=== PATIENT | male | born 1980 | race Caucasian/White ===

== ENCOUNTER 2018-05-16 22:37 | Observation (INO) ==
[2018-05-17] MEDS ORDERED: Morphine Sulfate Inj 2 MG/ML Vial IV.PUSH ONE ×2 (03:17→06:18)
--- NOTE | 2018-05-17 03:20 | ED ---
HPI General Chief Complaint: Abdominal Pain Stated Complaint: Abd pain Time Seen by Provider: 05/17/18 03:11 History of Present Illness HPI narrative: Patient presents to the ER complaining of epigastric abdominal pain 2 days. States he feels like it is gas. Radiates to his mid back, 8 out of 10, constant, aggravated by eating, alleviated by movement. Denies fever chills, chest pain or shortness of breath. He states he has been nauseated and vomiting with nonbloody diarrhea. Related Data Allergies Allergy/AdvReac Type Severity Reaction Status Date / Time No Known Allergies Allergy Verified 05/16/18 23:09 Review of Systems ROS: all other systems reviewed are negative FORMERLY [facility], [facility]–1983 Medical History Medical History Colitis (Acute) Diabetes (Acute) HTN (hypertension) (Acute) Sleep apnea (Acute) Surgical History Surgical History Tracheostomy status (Acute) Social History Social History Substance History: No History of Abuse Smoking Status: Never smoker How Often Do You Have a Drink Containing Alcohol: Monthly or less Recent Travel in [facility] within the Last 8 Weeks: No Recent Out of Country Travel within the Last 8 Weeks: No Immunization History Tetanus Immunization: <5 Years Hx Influenza Vaccine This Season: Yes Exam Narrative Exam Narrative: GENERAL: No acute distress. SKIN: Focused skin assessment warm/dry. HEAD: Atraumatic. Normocephalic. EYES: Pupils equal and round. No scleral icterus. No injection or drainage. ENT: No nasal bleeding or discharge. Mucous membranes pink and moist. NECK: Trachea midline. No JVD. CARDIOVASCULAR: Regular rate and rhythm. No murmur appreciated. RESPIRATORY: No accessory muscle use. Clear to auscultation. Breath sounds equal bilaterally. GASTROINTESTINAL: Abdomen soft, diffusely tender, obese. Hepatic and splenic margins not palpable. MUSCULOSKELETAL: No obvious deformities. No clubbing. No cyanosis. No edema. NEUROLOGICAL: Awake and alert. No obvious cranial nerve deficits. Motor grossly within normal limits. Normal speech. PSYCHIATRIC: Appropriate mood and affect; insight and judgment normal. Course Initial Documented Vital Signs Temperature 98.2 F 05/16/18 23:09 Pulse Rate 62 05/16/18 23:09 Respiratory Rate 18 05/16/18 23:09 Blood Pressure 136/89 05/16/18 23:09 Pulse Oximetry 99 05/16/18 23:09 Last Documented Vital Signs Temperature 98.2 F 05/16/18 23:09 Pulse Rate 75 08/19/18 03:14 Respiratory Rate 20 05/17/18 04:08 Blood Pressure 133/76 05/17/18 03:14 Pulse Oximetry 99 05/17/18 03:14 Medical Decision Making MDM Narrative Medical decision making narrative: Presents to the emergency department complaining of epigastric abdominal pain, diarrhea, and nausea vomiting. Patient placed on monitor worker, continuous pulse ox, and IV access obtained. Labs, EKG, chest x-ray, CT abdomen pelvis, 2 mg IV morphine and 4 mg IV Zofran ordered. Chest x-ray shows no acute process. T bili and glucose and AST and ALT increased. UA positive for protein and bilirubin. CT abd/pelvis: CONCLUSION:1. No acute abnormality is seen.2. Hepatic steatosis U/S: 1. Hepatic steatosis.2. Gallbladder sludge. 0615: Spoke to Dr. Ferguson, the radiologist, who advised that gallbladder sludge is not indicative of anything pathologic. patient still c/o abd pain. Will give another dose of morphine, 1L IV NS, and admit for observation. Medical Screen Exam Complete: Yes Emergency Medical Condition: Yes Differential Diagnosis Differential Diagnosis: ACS, pancreatitis, peptic ulcer disease/GERD/, cholecystitis, cholelithiasis Lab Data Result diagrams: 05/17/18 03:30 05/17/18 03:30 Lab Results 05/17/18 05/17/18 05/17/18 Range/Units 03:30 03:30 03:30 WBC 7.9 (4.0-11.0) th/mm3 RBC 4.78 (4.50-5.90) mil/mm3 Hgb 14.4 (13.0-17.0) gm/dL Hct 41.5 (39.0-51.0) % MCV 86.8 (80.0-100.0) fL MCH 30.2 (27.0-34.0) pg MCHC 34.8 (32.0-36.0) % RDW 13.4 (11.6-17.2) % Plt Count 235 (150-450) th/mm3 MPV 8.9 (7.0-11.0) fL Neut % (Auto) 76.8 H (16.0-70.0) % Lymph % (Auto) 14.3 (9.0-44.0) % [place] % (Auto) 7.0 (0.0-8.0) % Eos % (Auto) 1.6 (0.0-4.0) % Baso % (Auto) 0.3 (0.0-2.0) % Neut # (Auto) 6.1 (1.8-7.7) th/mm3 Lymph # (Auto) 1.1 (1.0-4.8) th/mm3 [place] # (Auto) 0.6 (0.0-0.9) th/mm3 Eos # (Auto) 0.1 (0.0-0.4) th/mm3 Baso # (Auto) 0.0 (0.0-0.2) th/mm3 WBC Differential . Differential Comment Auto diff final PT 10.3 (9.8-11.6) sec INR 1.0 Ratio APTT 27.1 (24.3-30.1) sec Sodium 137 (136-145) meq/L Potassium 3.9 (3.5-5.1) meq/L Chloride 103 (98-107) meq/L Carbon Dioxide 28.4 (21.0-32.0) meq/L Anion Gap 6 (5-15) meq/L BUN 7 (7-18) mg/dL Creatinine 0.86 (0.60-1.30) mg/dL Estimated GFR Greater than 89 (>89) mL/min Random Glucose 206 H (74-106) mg/dL Calcium 8.2 L (8.5-10.1) mg/dL Total Bilirubin 4.9 H (0.2-1.0) mg/dL AST 489 H (15-37) U/L ALT 620 H (12-78) U/L Alkaline Phosphatase 90 (45-117) U/L Total Creatine Kinase 154 (39-308) U/L CK-MB (CK-2) 3.1 (0.5-3.6) ng/mL Troponin I Less than 0.02 L (0.02-0.05) ng/mL Total Protein 7.6 (6.4-8.2) g/dL Albumin 3.8 (3.4-5.0) g/dL Lipase 111 (73-393) U/L Urine Color (Yellw/Straw) Urine Clarity (Clear) Urine pH (5.0-8.5) Ur Specific [place] (1.002-1.035) Urine Protein (Neg-Trace) mg/dL Urine Glucose (UA) (Negative) mg/dL Urine Ketones (Negative) mg/dL Urine Occult Blood (Negative) Urine Nitrate (Negative) Urine Bilirubin (Negative) Urine Ictotest (Negative) Urine Urobilinogen (Less than 2) mg/dL Ur Leukocyte Esterase (Negative) Urine RBC (0-3) /hpf Urine WBC (0-5) /hpf Ur Squamous Epith Cells (0-5) /hpf Hyaline Casts (0-3) /lpf Urine Mucus (Occasional) /lpf Micro UA Comment Urine Culture Comments 05/17/18 Range/Units 03:58 WBC (4.0-11.0) th/mm3 RBC (4.50-5.90) mil/mm3 Hgb (13.0-17.0) gm/dL Hct (39.0-51.0) % MCV (80.0-100.0) fL MCH (27.0-34.0) pg MCHC (32.0-36.0) % RDW (11.6-17.2) % Plt Count (150-450) th/mm3 MPV (7.0-11.0) fL Neut % (Auto) (16.0-70.0) % Lymph % (Auto) (9.0-44.0) % [place] % (Auto) (0.0-8.0) % Eos % (Auto) (0.0-4.0) % Baso % (Auto) (0.0-2.0) % Neut # (Auto) (1.8-7.7) th/mm3 Lymph # (Auto) (1.0-4.8) th/mm3 [place] # (Auto) (0.0-0.9) th/mm3 Eos # (Auto) (0.0-0.4) th/mm3 Baso # (Auto) (0.0-0.2) th/mm3 WBC Differential Differential Comment PT (9.8-11.6) sec INR Ratio APTT (24.3-30.1) sec Sodium (136-145) meq/L Potassium (3.5-5.1) meq/L Chloride (98-107) meq/L Carbon Dioxide (21.0-32.0) meq/L Anion Gap (5-15) meq/L BUN (7-18) mg/dL Creatinine (0.60-1.30) mg/dL Estimated GFR (>89) mL/min Random Glucose (74-106) mg/dL Calcium (8.5-10.1) mg/dL Total Bilirubin (0.2-1.0) mg/dL AST (15-37) U/L ALT (12-78) U/L Alkaline Phosphatase (45-117) U/L Total Creatine Kinase (39-308) U/L CK-MB (CK-2) (0.5-3.6) ng/mL Troponin I (0.02-0.05) ng/mL Total Protein (6.4-8.2) g/dL Albumin (3.4-5.0) g/dL Lipase (73-393) U/L Urine Color Zahra (Yellw/Straw) Urine Clarity Hazy H (Clear) Urine pH 5.0 (5.0-8.5) Ur Specific [place] 1.035 (1.002-1.035) Urine Protein 30 H (Neg-Trace) mg/dL Urine Glucose (UA) 500 or greater (Negative) mg/dL Urine Ketones Negative (Negative) mg/dL Urine Occult Blood Negative (Negative) Urine Nitrate Negative (Negative) Urine Bilirubin Moderate H (Negative) Urine Ictotest Positive H (Negative) Urine Urobilinogen 4 or greater (Less than 2) mg/dL Ur Leukocyte Esterase Negative (Negative) Urine RBC 1 (0-3) /hpf Urine WBC 2 (0-5) /hpf Ur Squamous Epith Cells 3 (0-5) /hpf Hyaline Casts 1 (0-3) /lpf Urine Mucus Few H (Occasional) /lpf Micro UA Comment Culture not ind Urine Culture Comments Culture not ind Imaging Data Radiologist's impression: Chest X-Ray 05/17/18 03:17 CONCLUSION: No acute cardiopulmonary process. Abdomen/Pelvis CT 05/17/18 04:27 CONCLUSION: 1. No acute abnormality is seen. 2. Hepatic steatosis. Gallbladder Ultrasound 05/17/18 05:17 CONCLUSION: 1. Hepatic steatosis. 2. Gallbladder sludge. ECG Data Attestation: I personally reviewed and interpreted this ECG as follows: Discharge Plan Discharge Disposition Patient Disposition: 30 Still Patient Discharge Condition Condition: Stable Discharge Details Diagnosis: Abdominal pain Physicians Team ED Provider: Ana Hopper Primary Care Provider: UNKNOWN, Discharge Interventions Interventions: Vital Signs Last Done: 05/17/18 03:14 Status ED Status: With Doctor
[2018-05-17 03:46] LABS: Baso % (Auto) 0.3 % (0.0-2.0); Eos # (Auto) 0.1 th/mm3 (0.0-0.4); Eos % (Auto) 1.6 % (0.0-4.0); Hematocrit 41.5 % (39.0-51.0); Hemoglobin 14.4 gm/dL (13.0-17.0); Lymph # (Auto) 1.1 th/mm3 (1.0-4.8); Lymph % (Auto) 14.3 % (9.0-44.0); Mean Corpuscular HGB Conc 34.8 % (32.0-36.0); Mean Corpuscular Hemoglobin 30.2 pg (27.0-34.0); Mean Corpuscular Volume 86.8 fL (80.0-100.0); Mean Platelet Volume 8.9 fL (7.0-11.0); Mono # (Auto) 0.6 th/mm3 (0.0-0.9); Neut # (Auto) 6.1 th/mm3 (1.8-7.7); Neut % (Auto) 76.8 % (16.0-70.0); Platelet Count 235 th/mm3 (150-450); Red Blood Count 4.78 mil/mm3 (4.50-5.90); Red Cell Distribution Width 13.4 % (11.6-17.2); White Blood Count 7.9 th/mm3 (4.0-11.0)
[2018-05-17 03:59] LABS: Alanine Aminotransferase 620 U/L (12-78); Albumin 3.8 g/dL (3.4-5.0); Anion Gap 6 meq/L (5-15); Aspartate Aminotransferase 489 U/L (15-37); Blood Urea Nitrogen 7 mg/dL (7-18); Calcium 8.2 mg/dL (8.5-10.1); Carbon Dioxide 28.4 meq/L (21.0-32.0); Chloride 103 meq/L (98-107); Glomerular Filtration Rate Greater Than 89 mL/min (>89); Glucose,Random 206 mg/dL (74-106); Lipase 111 U/L (73-393); Potassium 3.9 meq/L (3.5-5.1); Sodium 137 meq/L (136-145)
[2018-05-17 04:00] LABS: Activated Partial Thrombo Time 27.1 sec (24.3-30.1); Prothrombin Time 10.3 sec (9.8-11.6)
[2018-05-17 04:03] LABS: Alkaline Phosphatase 90 U/L (45-117); Creatine Kinase 154 U/L (39-308); Total Protein 7.6 g/dL (6.4-8.2)
[2018-05-17 04:14] LABS: Bilirubin,Urine Moderate (Negative); Clarity,Urine Hazy (Clear); Color,Urine Amber (Yellw/Straw); Glucose,Urine (UA) 500 or Greater mg/dL (Negative); Hyaline Casts,Urine 1 /lpf (0-3); Leukocyte Esterase,Urine Negative (Negative); Mucus,Urine Few /lpf (Occasional); Nitrite,Urine Negative (Negative); Specific Gravity,Urine 1.035 (1.002-1.035); Squamous Epithelial Cell,Urine 3 /hpf (0-5); Urobilinogen,Urine 4 or Greater mg/dL (Less than 2)
[2018-05-17 04:16] LABS: Creatine Kinase MB 3.1 ng/mL (0.5-3.6)
[2018-05-17 04:19] LABS: Ictotest,Urine Positive (Negative)
--- NOTE | 2018-05-17 04:19 | XR ---
EXAM DATE: 05/17/2018 3:50 AM EDT AGE/SEX: 37 years / Male INDICATIONS: Lower chest pain for one week. CLINICAL DATA: This is the patient's initial encounter. Patient reports that signs and symptoms have been present for 1 week and indicates a pain score of 6/10. MEDICAL/SURGICAL HISTORY: None. None. COMPARISON: No prior exams available for comparison. FINDINGS: A single AP view of the chest demonstrates the lungs to be symmetrically aerated without evidence of mass, infiltrate or effusion. The cardiomediastinal contours are unremarkable. Osseous structures a re intact. CONCLUSION: No acute cardiopulmonary process. Electronically signed by: Hayder Ferguson MD 05/17/2018 4:17 AM EDT
--- NOTE | 2018-05-17 05:08 | CT ---
EXAM DATE: 05/17/2018 4:46 AM EDT AGE/SEX: 37 years / Male INDICATIONS: Upper abdominal pain X one week. CLINICAL DATA: This is the patient's initial encounter. Patient reports that signs and symptoms have been present for 1 week and indicates a pain score of 7/10. MEDICAL/SURGICAL HISTORY: Diabetes. Colitis None. ORAL CONTRAST: No oral contrast ingested. RADIATION DOSE: 31.80 CTDI (mGy) ; Patient body habitus COMPARISON: No prior exams available for comparison. TECHNIQUE: Multiple contiguous axial images were obtained through the abdomen and pelvis following b olus infusion of 96 ml Omnipaque 350 (iohexol) nonionic water-soluble contrast as a single exam dos e. No oral contrast ingested. Using automated exposure control and adjustment of the mA and/or kV ac cording to patient size, radiation dose was kept as low as reasonably achievable to obtain optimal di agnostic quality images. DICOM format image data is available electronically for review and comparis on. FINDINGS: Lower Lungs: The visualized lower lungs are clear. Liver: There is diffuse decreased attenuation to the liver. No focal hepatic lesions are seen. The ga llbladder is unremarkable for CT examination. Spleen: Homogeneous density without enlargement. Pancreas: Unremarkable without mass or calcification. Kidneys: Normal in size and shape. No evidence of mass or hydronephrosis. Adrenal Glands: Unremarkable. Aorta: The aorta and proximal iliac vessels are grossly unremarkable without aneurysmal dilation. Bowel/Mesentery: The bowel loops are grossly unremarkable. The cecum and sigmoid colon have a normal configuration. The appendix appears normal. Abdominal Wall: There is a mild umbilical hernia containing a small amount of mesenteric fat. Retroperitoneum: No evidence of adenopathy in the retrocrural, para-aortic, or deep pelvic regions. Bladder: Contours are smooth. Reproductive Organs: No abnormal masses or calcifications seen. Inguinal: The inguinal region is unremarkable without evidence of adenopathy. Bony Structures: There is degenerative change at the L5-S1 level. CONCLUSION: 1. No acute abnormality is seen. 2. Hepatic steatosis. Electronically signed by: Hayder Ferguson MD 05/17/2018 5:07 AM EDT
--- NOTE | 2018-05-17 06:03 | US ---
EXAM DATE: 05/17/2018 5:59 AM EDT AGE/SEX: 37 years / Male INDICATIONS: Epigastric pain. CLINICAL DATA: This is the patient's initial encounter. Patient reports that signs and symptoms have been present for 1 week and indicates a pain score of 7/10. MEDICAL/SURGICAL HISTORY: Diabetes. Hypertension. Colitis. None. COMPARISON: [facility] [place], CT ABDOMEN & PELVIS W CONTRAST, 05/17/2018. . MEASUREMENTS: Liver:__ 18.8 cm. Common Bile Duct:__ 7mm. FINDINGS: Liver: Increased echotexture without focal lesion or ductal dilation. Portal Vein: Hepatopedal flow seen in portal vein. Common Duct: No intraluminal mass or stone visualized. Gallbladder: There is echogenic material within the gallbladder suggestive of sludge. Gallstones are not seen. The gallbladder wall is not thickened. Pancreas: The visualized portions are within normal limits Right Kidney: Normal echotexture and cortical thickness. No mass or hydronephrosis. CONCLUSION: 1. Hepatic steatosis. 2. Gallbladder sludge. Electronically signed by: Hayder Ferguson MD 05/17/2018 6:01 AM EDT
[2018-05-17] MEDS ORDERED: Sod Chloride 0.9% Inj 1,000 ML IV.SIG ONE (06:18)
[2018-05-17] MEDS: Sod Chloride 0.9% Inj 1,000 ML IV.CONT SCH ×2 (06:39→17:57)
--- NOTE | 2018-05-17 10:43 | P.CONGI ---
History of Present Illness Consult date: 05/17/18 Consult reason: Abdominal pain, transaminitis Chief complaint: Abdominal pain History of Present Illness: This is an obese 37-year-old male who came into the hospital on 03/17/2018 complaining of epigastric pain, bloating and some nausea and vomiting, diarrhea. Patient states onset of symptoms was approximately a week ago but has worsened over the past few days. Aggravating symptoms are any type of food and after eating as well as belching and burping especially with foods. Patient states he had a EGD done at an office in [place] approximately 2 weeks ago which showed acid reflux but was not taken any medicines for his symptoms. He also notes colonoscopy approximately 2 years ago for what he thinks is ulcerative colitis and has been on Apriso. Patient states he still has some diarrheal stools anywhere from 2-3 times a day but no obvious bleeding. When initial labs were drawn here in the hospital bilirubin showed 4.9, AST 489 ALT 620 and normal alkaline phosphatase at 90. Patient states he has been started on some new medication for depression and does take cholesterol medicines. Gastroenterology was consulted to assist with these current GI symptoms and plan of care. Patient denies any current alcohol usage and states that he only drank monthly or less in the past. Patient denies any previous liver workup or liver problems in the past. CT of the abdomen and pelvis showed hepatic steatosis and mild umbilical hernia. Ultrasound of the gallbladder was also done which showed gallbladder sludge but no ductal dilation. Patient denies any family history of colon cancer. Other current labs show hemoglobin 14.4, PT/INR 1, WBC count 7.9,. Patient denies any other symptoms of fever chills or history of constipation, but does note a history of diabetes. Patient has positive Hx tattoo. Review of Systems All other systems reviewed negative except as stated in HPI PMFSH - History History Provided By: Patient - Medical History Medical History: Medical History (Last Updated 05/16/18 @ 23:11 by Clemencia Milton) Colitis Diabetes HTN (hypertension) Sleep apnea - Surgical History Surgical History: Surgical History (Last Updated 05/16/18 @ 23:11 by Clemencia Milton) Tracheostomy status - Tobacco History Smoking Status: Never smoker - Alcohol History How Often Do You Have a Drink Containing Alcohol: Monthly or less - Substance Use History Substance History: No History of Abuse - Travel History Recent Travel in the [place] Within the Last 8 Weeks: No Recent Travel Out of the Country Within the Last 8 Weeks: No - Immunization History Tetanus Immunization: <5 Years Hx Influenza Vaccine This Season: Yes Medications and Allergies Active Medications: Active Medications Sodium Chloride (Ns Inj) 1,000 mls @ 100 mls/hr IV.CONT .Q10H SERGE Last Admin: 05/17/18 06:39 Dose: 100 mls/hr Ondansetron HCl (Zofran Inj) 4 mg IV.PUSH Q6H PRN PRN Reason: NAUSEA OR VOMITING Allergies Allergy/AdvReac Type Severity Reaction Status Date / Time No Known Allergies Allergy Verified 05/16/18 23:09 Home Medications Medication Instructions Recorded Confirmed Type lisinopril 10 mg PO DAILY 05/17/18 05/17/18 History mesalamine [Apriso] 4 tab PO QAM 05/17/18 05/17/18 History metformin 500 mg PO BID 05/17/18 05/17/18 History Exam Vital signs: Vital Signs 05/16/18 23:09 05/17/18 03:14 05/17/18 04:08 Temperature 98.2 F Pulse Rate 62 75 Respiratory Rate 18 18 20 Blood Pressure 136/89 133/76 Pulse Oximetry 99 99 05/17/18 06:33 05/17/18 08:10 Temperature Pulse Rate 66 62 Respiratory Rate 20 18 Blood Pressure 132/70 134/82 Pulse Oximetry 98 Intake & Output 05/16/18 05/17/18 05/17/18 18:59 06:59 18:59 Weight 143.789 kg - Constitutional mild distress, morbidly obese - Routine HEENT Exam Head: Present: normocephalic, atraumatic ENT: Present: mucous membranes moist - Routine Neck Exam Present: supple (Obese) - Routine Respiratory Exam Present: accessory muscle use (Even, unlabored at rest) - Routine Abdominal Exam Present: soft (Round, obese, epigastric tenderness to light palpation) - Routine Neurological Exam Present: alert (Fairly good historian) Results - Labs CBC & Chem 7: 05/17/18 03:30 05/17/18 03:30 Labs: Laboratory Results - last 24 hr 05/17/18 05/17/18 05/17/18 03:30 03:30 03:30 WBC 7.9 RBC 4.78 Hgb 14.4 Hct 41.5 MCV 86.8 MCH 30.2 MCHC 34.8 RDW 13.4 Plt Count 235 MPV 8.9 Neut % (Auto) 76.8 H Lymph % (Auto) 14.3 [place] % (Auto) 7.0 Eos % (Auto) 1.6 Baso % (Auto) 0.3 Neut # (Auto) 6.1 Lymph # (Auto) 1.1 [place] # (Auto) 0.6 Eos # (Auto) 0.1 Baso # (Auto) 0.0 WBC Differential . Differential Comment Auto diff final PT 10.3 INR 1.0 APTT 27.1 Sodium 137 Potassium 3.9 Chloride 103 Carbon Dioxide 28.4 Anion Gap 6 BUN 7 Creatinine 0.86 Estimated GFR Greater than 89 Random Glucose 206 H Calcium 8.2 L Total Bilirubin 4.9 H AST 489 H ALT 620 H Alkaline Phosphatase 90 Total Creatine Kinase 154 CK-MB (CK-2) 3.1 Troponin I Less than 0.02 L Total Protein 7.6 Albumin 3.8 Lipase 111 Urine Color Urine Clarity Urine pH Ur Specific [place] Urine Protein Urine Glucose (UA) Urine Ketones Urine Occult Blood Urine Nitrate Urine Bilirubin Urine Ictotest Urine Urobilinogen Ur Leukocyte Esterase Urine RBC Urine WBC Ur Squamous Epith Cells Hyaline Casts Urine Mucus Micro UA Comment Urine Culture Comments 05/17/18 03:58 WBC RBC Hgb Hct MCV MCH MCHC RDW Plt Count MPV Neut % (Auto) Lymph % (Auto) [place] % (Auto) Eos % (Auto) Baso % (Auto) Neut # (Auto) Lymph # (Auto) [place] # (Auto) Eos # (Auto) Baso # (Auto) WBC Differential Differential Comment PT INR APTT Sodium Potassium Chloride Carbon Dioxide Anion Gap BUN Creatinine Estimated GFR Random Glucose Calcium Total Bilirubin AST ALT Alkaline Phosphatase Total Creatine Kinase CK-MB (CK-2) Troponin I Total Protein Albumin Lipase Urine Color Zahra Urine Clarity Hazy H Urine pH 5.0 Ur Specific [place] 1.035 Urine Protein 30 H Urine Glucose (UA) 500 or greater Urine Ketones Negative Urine Occult Blood Negative Urine Nitrate Negative Urine Bilirubin Moderate H Urine Ictotest Positive H Urine Urobilinogen 4 or greater Ur Leukocyte Esterase Negative Urine RBC 1 Urine WBC 2 Ur Squamous Epith Cells 3 Hyaline Casts 1 Urine Mucus Few H Micro UA Comment Culture not ind Urine Culture Comments Culture not ind - Imaging Impressions Chest X-Ray 05/17/18 03:17 CONCLUSION: No acute cardiopulmonary process. Abdomen/Pelvis CT 05/17/18 04:27 CONCLUSION: 1. No acute abnormality is seen. 2. Hepatic steatosis. Gallbladder Ultrasound 05/17/18 05:17 CONCLUSION: 1. Hepatic steatosis. 2. Gallbladder sludge. Assessment and Plan (1) Transaminitis Status: Acute Code(s): R74.0 - Nonspecific elevation of levels of transaminase and lactic acid dehydrogenase [LDH] (2) Abdominal pain Status: Acute Code(s): R10.9 - Unspecified abdominal pain (3) Dyspepsia Status: Acute Code(s): R10.13 - Epigastric pain (4) Epigastric pain Status: Acute Code(s): R10.13 - Epigastric pain - Plan 37-year-old obese male with symptoms of dyspepsia ,nausea and vomiting, some bloating and burping and aggregating factors with eating any type of food. Patient denies any obvious bleeding but does note history of EGD 2 weeks ago and a [place] office which showed atrophy reflux. Patient was not started on any medication at that time. Patient does have a history of diabetes but unknown if patient could possibly have be having symptoms of some gastroparesis. Current hemoglobin 14.4 ,WBC count 7.9 ,PT/INR 1, Diarrhea loose stools with a history of colitis probable ulcerative colitis according to patient. Patient's currently on Apriso and notes diarrhea stools 2 or 3 times a day nonbloody. Hepatic steatosis noted on CT of abdomen and pelvis. Transaminitis with AST 489 and ALT 620 normal alkaline phosphatase at 90 and bilirubin 4.9. This is a new finding for this patient so hepatocellular disease needs to be ruled out. Patient does note some new medications for depression and medications for cholesterol. Patient's hepatocellular disease could be related to medications, dietary, inflammation, doubt obstruction. CT scan did show hepatic steatosis and mild umbilical hernia. Gallbladder ultrasound sludge sludge but no ductal dilatation. No family history of colon cancer. Positive history of tattoos Plan Diet clear liquids for now or per attending. Consent for EGD colonoscopy in a.m. N.p.o. at midnight GoLYTELY prep to began at 1600 Liver workup labs initiated to rule out hepatocellular disease. PPI IV Zofran Monitor labs Supportive care Further recommendations to follow. Patient was seen per me and Dr. Moss, note was written on his behalf (2) Abdominal pain Qualifiers: Abdominal location: right upper quadrant Qualified Code(s): R10.11 - Right upper quadrant pain
[2018-05-17 12:06] LABS: Hepatitis A IgM Antibody Nonreactive (Nonreactive); Hepatitits B Surface Antigen Nonreactive (Nonreactive)
[2018-05-17 12:58] LABS: Alpha Fetoprotein Tumor Marker 1.9 ng/mL (0.5-8.0)
[2018-05-17] MEDS: Pantoprazole Inj 40 MG Vial IV.PUSH SCH ×2 (13:49→23:19)
--- NOTE | 2018-05-17 14:46 | P.HPIM ---
History of Present Illness Service: Mr. Dolan is a 37-year-old male. He says for several weeks he has been having intermittent right upper quadrant abdominal pain. This tends to occur at night and he is noticed that it may be positional for introducing the pain and alleviating the pain. Yesterday he had an onset of the pain but did not have relief for approximately 24 hours so he came in to the emergency department. No overt evidence is present for cholecystitis though clinically and based on history he would be suspicious for symptomatic cholelithiasis. When I am seeing this patient he has had resolution of his pain. HIDA scan is pending. Primary Care Physician: UNKNOWN - Diagnosis (1) Abdominal pain (2) Transaminitis (3) Dyspepsia (4) Epigastric pain Review of Systems Constitutional: Denies fatigue, Denies fever(s), Denies night sweats, Denies weakness Eyes: Denies blind spots, Denies blurry vision, Denies change in vision, Denies double vision Ears, Nose, Mouth, and Throat: Denies abnormal hearing, Denies bleeding gums, Denies nasal discharge Cardiovascular: Denies chest pain, Denies chest pain at rest, Denies chest pain with activity Respiratory: Denies cough, Denies shortness of breath, Denies wheezing Gastrointestinal: Reports abdominal pain Musculoskeletal: Denies abnormal walking, Denies back pain, Denies decreased muscle mass Skin/Breast: Denies rash, Denies skin pain, Denies skin ulcer Neurologic: Denies abnormal hearing, Denies abnormal movements, Denies abnormal speech Psychiatric: Denies abnormal sleep pattern, Denies anxiety, Denies behavioral changes PMFSH - History History Provided By: Patient - Medical History Medical History: Medical History (Last Updated 05/16/18 @ 23:11 by Clemencia Milton) Colitis Diabetes HTN (hypertension) Sleep apnea - Surgical History Surgical History: Surgical History (Last Updated 05/16/18 @ 23:11 by Clemencia Milton) Tracheostomy status - Family History Family History: Family History (Last Updated 05/17/18 @ 14:41 by Percy Yancey MD) Mother Asthma Father Diabetes FHx: cholecystectomy Hypertension - Tobacco History Smoking Status: Never smoker - Alcohol History How Often Do You Have a Drink Containing Alcohol: Monthly or less - Substance Use History Substance History: No History of Abuse - Travel History Recent Travel in the [place] Within the Last 8 Weeks: No Recent Travel Out of the Country Within the Last 8 Weeks: No - Immunization History Tetanus Immunization: <5 Years Hx Influenza Vaccine This Season: Yes Medications and Allergies Active Medications: Active Medications Sodium Chloride (Ns Inj) 1,000 mls @ 100 mls/hr IV.CONT .Q10H [facility] Last Admin: 05/17/18 06:39 Dose: 100 mls/hr Ondansetron HCl (Zofran Inj) 4 mg IV.PUSH Q6H PRN PRN Reason: NAUSEA OR VOMITING Pantoprazole Sodium (Protonix Inj) 40 mg IV.PUSH Q12H [facility] Last Admin: 05/17/18 13:49 Dose: 40 mg Polyethylene Glycol/Electrolytes (Colyte Liq) 4,000 ml PO ONCE ONE Stop: 05/17/18 16:01 Allergies Allergy/AdvReac Type Severity Reaction Status Date / Time No Known Allergies Allergy Verified 05/16/18 23:09 Home Medications Medication Instructions Recorded Confirmed Type lisinopril 10 mg PO DAILY 05/17/18 05/17/18 History mesalamine [Apriso] 4 tab PO QAM 05/17/18 05/17/18 History metformin 500 mg PO BID 05/17/18 05/17/18 History Exam Vital signs: Vital Signs 05/16/18 23:09 05/17/18 03:14 05/17/18 04:08 Temperature 98.2 F Pulse Rate 62 75 Respiratory Rate 18 18 20 Blood Pressure 136/89 133/76 Pulse Oximetry 99 99 05/17/18 06:33 05/17/18 08:10 Temperature Pulse Rate 66 62 Respiratory Rate 20 18 Blood Pressure 132/70 134/82 Pulse Oximetry 98 Intake & Output 05/16/18 05/17/18 05/17/18 18:59 06:59 18:59 Weight 143.789 kg Narrative: GENERAL: NAD, A&Ox3, obese HEAD: Normocephalic. NECK: Supple, trachea midline. No lymphadenopathy. EYES: No scleral icterus. No injection or drainage. CARDIOVASCULAR: Regular rate and rhythm without murmurs, gallops, or rubs. RESPIRATORY: Breath sounds equal bilaterally. No accessory muscle use. GASTROINTESTINAL: Abdomen soft, non-tender, nondistended. MUSCULOSKELETAL: No cyanosis, or edema. SKIN: Warm and dry. NEURO: No focal neurological deficits. Results - Labs CBC & Chem 7: 05/17/18 03:30 05/17/18 03:30 Labs: Short CBC 05/17/18 Range/Units 03:30 WBC 7.9 (4.0-11.0) th/mm3 Hgb 14.4 (13.0-17.0) gm/dL Hct 41.5 (39.0-51.0) % Plt Count 235 (150-450) th/mm3 BMP 05/17/18 03:30 Sodium 137 Potassium 3.9 Chloride 103 Carbon Dioxide 28.4 BUN 7 Creatinine 0.86 Calcium 8.2 L Cardiac Enzymes 05/17/18 Range/Units 03:30 Total Creatine Kinase 154 (39-308) U/L CK-MB (CK-2) 3.1 (0.5-3.6) ng/mL Troponin I Less than 0.02 L (0.02-0.05) ng/mL Liver Function 05/17/18 Range/Units 03:30 Total Bilirubin 4.9 H (0.2-1.0) mg/dL AST 489 H (15-37) U/L ALT 620 H (12-78) U/L Alkaline Phosphatase 90 (45-117) U/L Albumin 3.8 (3.4-5.0) g/dL Urine 05/17/18 Range/Units 03:58 Urine Color Zahra (Yellw/Straw) Urine Clarity Hazy H (Clear) Urine pH 5.0 (5.0-8.5) Ur Specific [place] 1.035 (1.002-1.035) Urine Protein 30 H (Neg-Trace) mg/dL Urine Glucose (UA) 500 or greater (Negative) mg/dL - Imaging Impressions Chest X-Ray 05/17/18 03:17 CONCLUSION: No acute cardiopulmonary process. Abdomen/Pelvis CT 05/17/18 04:27 CONCLUSION: 1. No acute abnormality is seen. 2. Hepatic steatosis. Gallbladder Ultrasound 05/17/18 05:17 CONCLUSION: 1. Hepatic steatosis. 2. Gallbladder sludge. Caprini VTE Risk Assessment Caprini VTE Risk Assessment: No/Low Risk (score <= 1) Caprini Risk Assessment Model: Point Value = 1 Point Value = 2 Point Value = 3 Point Value = 5 Age 41-60 Minor surgery BMI > 25 kg/m2 Swollen legs Varicose veins or History of unexplained or recurrent spontaneous Oral contraceptives or hormone replacement Sepsis (< 1 month) Serious lung disease, including pneumonia (< 1 month) Abnormal pulmonary function Acute myocardial infarction Congestive heart failure (< 1 month) History of inflammatory bowel disease Medical patient at bed rest Age 61-74 Arthroscopic surgery Major open surgery (> 45 min) Laparoscopic surgery (> 45 min) Malignancy Confined to bed (> 72 hours) Immobilizing plaster cast Central venous access Age >= 75 History of VTE Family history of VTE Factor V Leiden Prothrombin [id number] Lupus anticoagulant Anticardiolipin antibodies Elevated serum homocysteine Heparin-induced thrombocytopenia Other congenital or acquired thrombophilia Stroke (< 1 month) Elective arthroplasty Hip, pelvis, or leg fracture Acute spinal cord injury (< 1 month) Prophylaxis Regimen: Total Risk Factor Score Risk Level Prophylaxis Regimen 0-1 Low Early ambulation 2 Moderate Order ONE of the following: *Sequential Compression Device (SCD) *Heparin 5000 units SQ BID 3-4 Higher Order ONE of the following medications: *Heparin 5000 units SQ TID *Enoxaparin/Lovenox 40 mg SQ daily (WT < 150 kg, CrCl > 30 mL/min) *Enoxaparin/Lovenox 30 mg SQ daily (WT < 150 kg, CrCl > 10-29 mL/min) *Enoxaparin/Lovenox 30 mg SQ BID (WT < 150 kg, CrCl > 30 mL/min) AND/OR *Sequential Compression Device (SCD) 5 or more Highest Order ONE of the following medications: *Heparin 5000 units SQ TID (Preferred with Epidurals) *Enoxaparin/Lovenox 40 mg SQ daily (WT < 150 kg, CrCl > 30 mL/min) *Enoxaparin/Lovenox 30 mg SQ daily (WT < 150 kg, CrCl > 10-29 mL/min) *Enoxaparin/Lovenox 30 mg SQ BID (WT < 150 kg, CrCl > 30 mL/min) AND *Sequential Compression Device (SCD) Assessment and Plan - Assessment (1) Abdominal pain Code(s): R10.9 - Unspecified abdominal pain Status: Acute (2) Transaminitis Code(s): R74.0 - Nonspecific elevation of levels of transaminase and lactic acid dehydrogenase [LDH] Status: Acute (3) Dyspepsia Code(s): R10.13 - Epigastric pain Status: Acute (4) Epigastric pain Code(s): R10.13 - Epigastric pain Status: Acute - Plan 37-year-old male admitted secondary to abdominal pain with transaminitis Abdominal pain Transaminitis Hyperbilirubinemia Follow LFTs Follow bilirubin level Concern remains for biliary obstruction HIDA scan ordered for further evaluation Continue to monitor for pain Pain treatments as needed Ultrasound and CT showed no acute pathology Diet advance per GI recommendation Diabetes mellitus type 2 Follow blood sugars Insulin sliding scale Diabetic diet Hypertension Continue baseline treatment Follow blood pressures Adjust treatments as needed Chronic colitis Continue baseline treatments Primary symptom from this condition is not abdominal pain, but diarrhea No active diarrhea Sleep apnea CPAP DVT prophylaxis SCDs (1) Abdominal pain Qualifiers: Abdominal location: right upper quadrant Qualified Code(s): R10.11 - Right upper quadrant pain
--- NOTE | 2018-05-17 15:44 | ECG ---
Date Performed: 05/17/2018 Time Performed: 04:09:50 PTAGE: 37 years EKG: SINUS BRADYCARDIA WITH SINUS ARRHYTHMIA BORDERLINE ECG Since PREVIOUS TRACING , no significant change noted PREVIOUS TRACIN05/08/2011 08.25 DOCTOR: Elliott Dooley Interpretating Date/Time 05/17/2018 15:43:22
[2018-05-17] MEDS ORDERED: PEG 3350/E-Lyte Soln 4000 ML Bottle PO ONE (16:00)
[2018-05-17] MEDS ORDERED: Morphine Inj 4 MG/ML Vial IV.PUSH ONE (22:17)
[2018-05-17] MEDS ORDERED: Sodium Chlor 0.9% Inj 500 ML IV.SIG SCH (23:00)
[2018-05-17] MEDS ORDERED: Chlorhexidine Gluconate 2% 1 Pack (2 Cloths) TOPICAL SCH (23:00)
[2018-05-17] MEDS ORDERED: Metoprolol Tartrate 25 MG Tablet PO SCH (23:00)
[2018-05-18] MEDS: Sod Chloride 0.9% Inj 1,000 ML IV.CONT SCH ×3 (06:17→22:53)
[2018-05-18 07:55] LABS: Baso % (Auto) 0.5 % (0.0-2.0); Eos # (Auto) 0.2 th/mm3 (0.0-0.4); Eos % (Auto) 3.3 % (0.0-4.0); Hematocrit 39.4 % (39.0-51.0); Hemoglobin 13.8 gm/dL (13.0-17.0); Lymph # (Auto) 1.3 th/mm3 (1.0-4.8); Lymph % (Auto) 18.4 % (9.0-44.0); Mean Corpuscular Hemoglobin 30.7 pg (27.0-34.0); Mean Corpuscular Volume 87.5 fL (80.0-100.0); Mean Platelet Volume 9.2 fL (7.0-11.0); Mono # (Auto) 0.5 th/mm3 (0.0-0.9); Mono % (Auto) 7.2 % (0.0-8.0); Neut # (Auto) 4.9 th/mm3 (1.8-7.7); Neut % (Auto) 70.6 % (16.0-70.0); Platelet Count 210 th/mm3 (150-450); Red Cell Distribution Width 13.8 % (11.6-17.2); White Blood Count 6.9 th/mm3 (4.0-11.0)
[2018-05-18 08:27] LABS: Alanine Aminotransferase 445 U/L (12-78); Albumin 3.3 g/dL (3.4-5.0); Anion Gap 4 meq/L (5-15); Aspartate Aminotransferase 132 U/L (15-37); Blood Urea Nitrogen 4 mg/dL (7-18); Calcium 8.6 mg/dL (8.5-10.1); Carbon Dioxide 30.8 meq/L (21.0-32.0); Chloride 105 meq/L (98-107); Glomerular Filtration Rate Greater Than 89 mL/min (>89); Glucose,Random 128 mg/dL (74-106); Potassium 3.8 meq/L (3.5-5.1); Sodium 140 meq/L (136-145)
[2018-05-18 08:28] LABS: Alkaline Phosphatase 86 U/L (45-117); Total Protein 6.7 g/dL (6.4-8.2)
[2018-05-18] MEDS ORDERED: Sincalide Inj 5 MCG Vial IV.PUSH ONE (10:29)
--- NOTE | 2018-05-18 11:44 | NM ---
EXAM DATE: 05/18/2018 11:09 AM EDT AGE/SEX: 37 years / Male INDICATIONS: Abdominal pain. Obstruction. CLINICAL DATA: This is the patient's initial encounter. Patient reports that signs and symptoms have been present for 1 day and indicates a pain score of 4/10. MEDICAL/SURGICAL HISTORY: Diabetes mellitus type II. Hypertension. None. COMPARISON: [facility] [place], [place] ABDOMEN - GALLBLADDER, 05/17/2018. . DOSE: 4.2 mCi Tc-99m mebrofenin i.v. Medication: 2.5 mcg Cholecystokinin IV No symptomatic response Cholecystokinin was administered by slow infusion over 8 minutes beginning at 60 minutes. TECHNIQUE: Following the intravenous administration of radiotracer, dynamic sequential images were pe rformed with continuous acquisition. Time-activity curves were generated. FINDINGS: Hepatic Kinetics: There is prompt uptake of radiotracer in the liver. No focal defects are seen. Ther e is normal rate of washout from the hepatic parenchyma. Biliary Clearance: Activity is first seen in the extrahepatic biliary system at 15 minutes. There is normal excretion into the small bowel. Gallbladder: Activity is first seen in the gallbladder at 20 minutes. Post-CCK: After CCK administration, there is no emptying of the gallbladder with continued filling of the gallbladder. Common bile duct kinetics are normal and there is no evidence of biliary obstructio n. No symptomatic response after cholecystokinin infusion. Biliary-Enteric Reflux: None observed. CONCLUSION: 1. Visualization of the gallbladder confirms patency of the cystic duct. This makes diagnosis of acu te cholecystitis highly unlikely. 2. Normal biliary bowel transit time confirming patency of the common bile duct. 3. Slow gallbladder filling without significant gallbladder emptying following CCK administration. N o significant symptomatic response to CCK. Electronically signed by: Anshul Olivo MD 05/18/2018 11:42 AM EDT
[2018-05-18] MEDS ORDERED: Lidocaine PF 1% Inj 5 ML Syringe INFILTRATN ONE (12:00)
--- NOTE | 2018-05-18 12:05 | P.PCN ---
Date of procedure: 05/18/18 Pre-op diagnosis: Nausea vomiting bloating Procedure: PROCEDURE PERFORMED EGD with biopsy followed by colonoscopy with biopsy INDICATION FOR PROCEDURE Nausea vomiting, diarrhea, history of colitis PROCEDURE: The procedure, risks and benefits were discussed with Patient/POA and informed consent was obtained. Anesthesia sedated Patient with Diprivan. Patient was placed in the left lateral decubitus position. EGD: The Pentax videoscope was introduced through the oropharynx and advanced to the second portion of the duodenum under direct visualization. Retroflexion was performed in the stomach. FINDINGS: The esophagus this appeared to be unremarkable and within normal limits Stomach there was some patchy erythema in the antrum but no ulcerations no erosions no blood or bleeding the rest of the stomach was unremarkable antral biopsies were taken for further evaluation The duodenum this was normal Colonoscopy: The Pentax videoscope was introduced through the rectum and advanced to cecum where the ileocecal valve and appendiceal orifice were identified. Retroflexion was performed in the rectum. Colonic prep was fair FINDINGS: Colonic withdrawal time greater than 6 minutes. As the scope was slowly withdrawn colonic mucosa was carefully inspected the colonic mucosa appeared to be unremarkable and within normal limits all the way through random biopsies were taken from the ascending transverse descending and rectum to further evaluate for colitis retroflexion was unremarkable and so his rectal examination ESTIMATED BLOOD LOSS: None SPECIMENS REMOVED: Antral and colonic biopsies COMPLICATIONS: None IMPRESSION: Mild gastritis Otherwise unremarkable endoscopy PLAN: Await biopsies Advance diet as tolerated Patient requires better diabetes control Continue with present management If symptoms persist may consider gastric emptying scan and prokinetic medications Patient follow-up with GI post discharge Not much to add at this point we will sign off Anesthesia: MAC Surgeon: Bj Montenegro Condition: stable Disposition: floor
[2018-05-18] MEDS: Pantoprazole Inj 40 MG Vial IV.PUSH SCH ×2 (12:42→22:52)
--- NOTE | 2018-05-18 16:09 | P.PNIM ---
Subjective Interval history: Patient had another episode of severe pain last night. GI has completed their workup and found gastritis but no other acute findings on scoping. Patient reports that he has been having daily and nightly biliary colic type symptoms sometimes lasting about 24 hours. He requests surgical evaluation. Physical Exam Vital signs: Vital Signs 05/17/18 18:00 05/17/18 20:00 05/18/18 00:00 Temperature 98.2 F 97.7 F Pulse Rate 60 59 L Respiratory Rate 16 20 Blood Pressure 157/91 H 161/94 H Pulse Oximetry 98 98 99 05/18/18 04:00 05/18/18 08:00 05/18/18 08:14 Temperature 98.2 F 97.8 F Pulse Rate 46 L 58 L Respiratory Rate 17 16 Blood Pressure 134/68 145/89 H Pulse Oximetry 98 96 98 05/18/18 11:58 Temperature 97.9 F Pulse Rate 63 Respiratory Rate 18 Blood Pressure 117/68 Pulse Oximetry 98 Intake & Output 05/17/18 05/18/18 05/18/18 18:59 06:59 18:59 Intake Total 2480 / 2480 1440 / 1440 300 / 300 Output Total 1000 / 1000 Balance 2480 / 2480 440 / 440 300 / 300 Intake: IV 2000 / 1999 NS Inj 1,000 ML @ 100 mls/hr IV 1000 / 1000 .CONT .Q10H [facility] Rx#:[id number] NS Inj 1,000 ML @ Wide Open IV. 1000 / 1000 SIG BOLUS ONE Rx#:[id number] Oral 480 / 480 1440 / 1440 Anesthesia Amount 300 / 300 Output: Urine 1000 / 1000 Other: # Voids 0 Date of Last Bowel Movement 05/18/18 # Bowel Movements 0 Narrative: GENERAL: NAD, A&Ox3 HEAD: Normocephalic. NECK: Supple, trachea midline. No lymphadenopathy. EYES: No scleral icterus. No injection or drainage. CARDIOVASCULAR: Regular rate and rhythm without murmurs, gallops, or rubs. RESPIRATORY: Breath sounds equal bilaterally. No accessory muscle use. GASTROINTESTINAL: Abdomen soft, non-tender, nondistended. MUSCULOSKELETAL: No cyanosis, or edema. SKIN: Warm and dry. NEURO: No focal neurological deficits. Results - Labs CBC & Chem 7: 05/18/18 07:10 05/18/18 07:10 Laboratory Results - last 24 hr 05/18/18 05/18/18 07:10 07:10 WBC 6.9 RBC 4.50 Hgb 13.8 Hct 39.4 MCV 87.5 MCH 30.7 MCHC 35.0 RDW 13.8 Plt Count 210 MPV 9.2 Neut % (Auto) 70.6 H Lymph % (Auto) 18.4 [place] % (Auto) 7.2 Eos % (Auto) 3.3 Baso % (Auto) 0.5 Neut # (Auto) 4.9 Lymph # (Auto) 1.3 [place] # (Auto) 0.5 Eos # (Auto) 0.2 Baso # (Auto) 0.0 WBC Differential . Differential Comment Auto diff final Sodium 140 Potassium 3.8 Chloride 105 Carbon Dioxide 30.8 Anion Gap 4 L BUN 4 L Creatinine 0.73 Estimated GFR Greater than 89 Random Glucose 128 H Calcium 8.6 Total Bilirubin 1.9 H Direct Bilirubin 0.6 H Indirect Bilirubin 1.3 H AST 132 H ALT 445 H Alkaline Phosphatase 86 Total Protein 6.7 D Albumin 3.3 L - Imaging Impressions Bile Acid Absorption NM 05/18/18 00:00 CONCLUSION: 1. Visualization of the gallbladder confirms patency of the cystic duct. This makes diagnosis of acute cholecystitis highly unlikely. 2. Normal biliary bowel transit time confirming patency of the common bile duct. 3. Slow gallbladder filling without significant gallbladder emptying following CCK administration. No significant symptomatic response to CCK. Assessment and Plan - Assessment (1) Abdominal pain Code(s): R10.9 - Unspecified abdominal pain Status: Acute (2) Transaminitis Code(s): R74.0 - Nonspecific elevation of levels of transaminase and lactic acid dehydrogenase [LDH] Status: Acute (3) Dyspepsia Code(s): R10.13 - Epigastric pain Status: Acute (4) Epigastric pain Code(s): R10.13 - Epigastric pain Status: Acute - Plan 37-year-old male admitted secondary to abdominal pain with transaminitis Transaminitis improving. Continue to monitor. Biliary levels improving. Continue to monitor. Symptoms of biliary colic have a recurrent pattern. Abdominal pain Transaminitis Hyperbilirubinemia Biliary colic Follow LFTs Follow bilirubin level Concern remains for biliary obstruction HIDA scan shows no evidence of acute cholecystitis. Continue to monitor for pain Pain treatments as needed Ultrasound and CT showed no acute pathology Diet advance per GI recommendation Diabetes mellitus type 2 Follow blood sugars Insulin sliding scale Diabetic diet Hypertension Continue baseline treatment Follow blood pressures Adjust treatments as needed Chronic colitis Continue baseline treatments Primary symptom from this condition is not abdominal pain, but diarrhea No active diarrhea Sleep apnea CPAP DVT prophylaxis SCDs (1) Abdominal pain Qualifiers: Abdominal location: right upper quadrant Qualified Code(s): R10.11 - Right upper quadrant pain
[2018-05-18] MEDS ORDERED: oxyCODONE/Acetaminophen 10/325 Tablet PO PRN (16:47)
[2018-05-19] MEDS: Sod Chloride 0.9% Inj 1,000 ML IV.CONT SCH ×3 (09:40→17:47)
[2018-05-19] MEDS: Pantoprazole Inj 40 MG Vial IV.PUSH SCH ×2 (10:26→23:05)
--- NOTE | 2018-05-19 11:13 | P.CONGS ---
[facility] Gen Surgery Consult Note Consult date: 05/19/18 Reason for consult: abdominal pain Requesting physician: Bj Montenegro Narrative: This is a 37-year-old male with a past medical history of colitis, type 2 diabetes mellitus, hypertension and sleep apnea. The patient presented to the ER with complaints of right upper quadrant pain 2 weeks that is intermittent. The patient reports that the pain mostly occurs at night. The patient does report associated nausea, vomiting, diarrhea and chills. CT abdomen pelvis was obtained which shows no acute findings. A HIDA scan was obtained which shows visualization of the gallbladder confirms patency of the cystic duct and acute cholecystitis unlikely. There is normal biliary bowel transit which confirms patency of the common bile duct. On May 18 an EGD was performed which showed normal esophagus and stomach with patchy areas of erythema and no ulcerations. A colonoscopy was also done which shows a normal colonic mucosal. His white blood cell count is normal. His total bilirubin on admission was 4.9 and is now currently 1.9. His AST, ALT and alkaline phosphatase were all elevated and trending down. The patient's lipase on admission was 111. The patient reports no dietary intolerance or recent weight loss. A General Surgery consultation has been requested. Review of Systems Constitutional: Reports chills, Denies fever(s) Eyes: Denies itchy eyes Ears, Nose, Mouth, and Throat: Denies mouth lesions Cardiovascular: Denies chest pain, Denies chest pain at rest, Denies chest pain with activity Respiratory: Denies chest congestion, Denies cough Gastrointestinal: Reports abdominal pain, Reports loose stools, Reports nausea, Reports vomiting Genitourinary: Denies urinary incontinence, Denies urinary urgency Musculoskeletal: Denies abnormal walking Skin/Breast: Denies boil, Denies lesions Neurologic: Denies dizziness Psychiatric: Denies anxiety, Denies depression Endocrine: Denies cold intolerance, Denies heat intolerance Hematologic/Lymphatic: Denies easy bleeding Allergic/Immunologic: Denies GI upset with certain foods PMFSH - History History Provided By: Patient - Medical History Medical History: Medical History (Last Reviewed 05/19/18 @ 11:11 by JERMAINE Coyle) Colitis Diabetes HTN (hypertension) Sleep apnea - Surgical History Surgical History: Surgical History (Last Updated 05/19/18 @ 11:11 by JERMAINE Coyle) Hx of tonsillectomy Tracheostomy status - Family History Family History: Family History (Last Updated 05/17/18 @ 14:41 by Percy Yancey MD) Mother Asthma Father Diabetes FHx: cholecystectomy Hypertension - Tobacco History Second Hand Smoke Exposure: No Smoking Status: Never smoker - Alcohol History How Often Do You Have a Drink Containing Alcohol: Never - Substance Use History Substance History: No History of Abuse - Travel History Recent Travel in the [place] Within the Last 8 Weeks: No Recent Travel Out of the Country Within the Last 8 Weeks: No - Immunization History Tetanus Immunization: <5 Years Hx Influenza Vaccine This Season: Yes Medications and Allergies Allergies Allergy/AdvReac Type Severity Reaction Status Date / Time No Known Allergies Allergy Verified 05/16/18 23:09 Home Medications Medication Instructions Recorded Confirmed Type mesalamine [Apriso] 4 tab PO QAM 05/17/18 05/17/18 History metformin 500 mg PO BID 05/17/18 05/17/18 History Active Medications: Active Medications Chlorhexidine Gluconate (Chlorhexidine 2% Cloth) 3 pack [facility] Stop: 05/20/18 22:55 Sodium Chloride (Ns Inj) 1,000 mls @ 100 mls/hr IV.CONT .Q10H [facility] Last Infusion: 05/19/18 09:40 Dose: 100 mls/hr Sodium Chloride (Ns Inj) 500 mls @ 30 mls/hr IV.SIG .Q10H [facility] Stop: 05/20/18 22:55 Lactated Ringer's (Lr 1000 Ml Inj) 1,000 mls @ 30 mls/hr IV.SIG .Q24H [facility] Stop: 05/20/18 22:55 Last Admin: 05/19/18 09:40 Dose: Not Given Metoprolol Tartrate (Lopressor) 25 mg PO [facility] Stop: 05/20/18 22:55 Ondansetron HCl (Zofran Inj) 4 mg IV.PUSH Q6H PRN PRN Reason: NAUSEA OR VOMITING Last Admin: 05/18/18 16:43 Dose: 4 mg Oxycodone/Acetaminophen (Percocet 10/325 Mg) 1 tab PO Q4H PRN PRN Reason: Pain 7 to 10 Last Admin: 05/18/18 17:43 Dose: 1 tab Oxycodone/Acetaminophen (Percocet 5/325 Mg) 1 tab PO Q4H PRN PRN Reason: Pain 3 to 6 Pantoprazole Sodium (Protonix Inj) 40 mg IV.PUSH Q12H [facility] Last Admin: 05/19/18 10:26 Dose: 40 mg Povidone Iodine (Betadine 5% Antisepsis Kit) 1 applicatio EACH NARE [facility] Stop: 05/20/18 22:55 Exam Vital signs: Vital Signs 05/18/18 11:58 05/18/18 16:00 05/18/18 20:00 Temperature 97.9 F 97.8 F 98.2 F Pulse Rate 63 69 55 L Respiratory Rate 18 16 18 Blood Pressure 117/68 166/91 H 135/84 Pulse Oximetry 98 100 98 05/19/18 00:00 05/19/18 04:00 05/19/18 07:55 Temperature 97.7 F 97.5 F L 97.5 F L Pulse Rate 53 L 63 58 L Respiratory Rate 16 18 18 Blood Pressure 139/87 145/83 H 137/85 Pulse Oximetry 94 L 97 97 Intake & Output 05/18/18 05/19/18 05/19/18 18:59 06:59 18:59 Intake Total 300 / 300 1060 / 1060 Balance 300 / 300 1060 / 1060 Intake: IV 1000 / 1000 NS Inj 1,000 ML @ 100 mls/hr IV 1000 / 1000 .CONT .Q10H [facility] Rx#:[id number] Oral 60 / 60 Anesthesia Amount 300 / 300 Other: # Voids 3 1 Date of Last Bowel Movement 05/18/18 05/19/18 # Bowel Movements 1 Narrative: GENERAL: 37-year-old male sitting up in chair in no acute distress. SKIN: Warm and dry. HEAD: Atraumatic. Normocephalic. EYES: Pupils equal and round. No scleral icterus. No injection or drainage. ENT: No nasal bleeding or discharge. Mucous membranes pink and moist. NECK: Trachea midline. Prior tracheostomy scar noted. CARDIOVASCULAR: Regular rate and rhythm. RESPIRATORY: No accessory muscle use. Clear to auscultation. Breath sounds equal bilaterally. GASTROINTESTINAL: Abdomen soft, nondistended, obese abdomen without any visible scars or hernias. Mild tenderness to palpation to right upper quadrant. MUSCULOSKELETAL: Extremities without clubbing, cyanosis, or edema. No obvious deformities. NEUROLOGICAL: Awake and alert. No obvious cranial nerve deficits. Motor grossly within normal limits. Five out of 5 muscle strength in the arms and legs. Normal speech. PSYCHIATRIC: Appropriate mood and affect; insight and judgment normal. Results - Labs 05/23/18 08:33 05/23/18 08:33 Laboratory Results WBC 6.9 th/mm3 (4.0-11.0) 05/18/18 07:10 RBC 4.50 mil/mm3 (4.50-5.90) 05/18/18 07:10 Hgb 13.8 gm/dL (13.0-17.0) 05/18/18 07:10 Hct 39.4 % (39.0-51.0) 05/18/18 07:10 MCV 87.5 fL (80.0-100.0) 05/18/18 07:10 MCH 30.7 pg (27.0-34.0) 05/18/18 07:10 MCHC 35.0 % (32.0-36.0) 05/18/18 07:10 RDW 13.8 % (11.6-17.2) 05/18/18 07:10 Plt Count 210 th/mm3 (150-450) 05/18/18 07:10 MPV 9.2 fL (7.0-11.0) 05/18/18 07:10 Neut % (Auto) 70.6 % (16.0-70.0) H 05/18/18 07:10 Lymph % (Auto) 18.4 % (9.0-44.0) 05/18/18 07:10 [place] % (Auto) 7.2 % (0.0-8.0) 05/18/18 07:10 Eos % (Auto) 3.3 % (0.0-4.0) 05/18/18 07:10 Baso % (Auto) 0.5 % (0.0-2.0) 05/18/18 07:10 Neut # (Auto) 4.9 th/mm3 (1.8-7.7) 05/18/18 07:10 Lymph # (Auto) 1.3 th/mm3 (1.0-4.8) 05/18/18 07:10 [place] # (Auto) 0.5 th/mm3 (0.0-0.9) 05/18/18 07:10 Eos # (Auto) 0.2 th/mm3 (0.0-0.4) 05/18/18 07:10 Baso # (Auto) 0.0 th/mm3 (0.0-0.2) 05/18/18 07:10 WBC Differential . 05/18/18 07:10 Differential Comment Auto diff final 05/18/18 07:10 PT 10.3 sec (9.8-11.6) 05/17/18 03:30 INR 1.0 Ratio 05/17/18 03:30 APTT 27.1 sec (24.3-30.1) 05/17/18 03:30 Sodium 140 meq/L (136-145) 05/18/18 07:10 Potassium 3.8 meq/L (3.5-5.1) 05/18/18 07:10 Chloride 105 meq/L (98-107) 05/18/18 07:10 Carbon Dioxide 30.8 meq/L (21.0-32.0) 05/18/18 07:10 Anion Gap 4 meq/L (5-15) L 05/18/18 07:10 BUN 4 mg/dL (7-18) L 05/18/18 07:10 Creatinine 0.73 mg/dL (0.60-1.30) 05/18/18 07:10 Estimated GFR Greater than 89 mL/min (>89) 05/18/18 07:10 Random Glucose 128 mg/dL (74-106) H 05/18/18 07:10 Calcium 8.6 mg/dL (8.5-10.1) 05/18/18 07:10 Ferritin 454 ng/mL (26-388) H 05/17/18 10:17 Total Bilirubin 1.9 mg/dL (0.2-1.0) H 05/18/18 07:10 Direct Bilirubin 0.6 mg/dL (0.0-0.2) H 05/18/18 07:10 Indirect Bilirubin 1.3 mg/dL (0.0-0.8) H 05/18/18 07:10 AST 132 U/L (15-37) H 05/18/18 07:10 ALT 445 U/L (12-78) H 05/18/18 07:10 Alkaline Phosphatase 86 U/L (45-117) 05/18/18 07:10 Total Creatine Kinase 154 U/L (39-308) 05/17/18 03:30 CK-MB (CK-2) 3.1 ng/mL (0.5-3.6) 05/17/18 03:30 Troponin I Less than 0.02 ng/mL (0.02-0.05) L 05/17/18 03:30 Total Protein 6.7 g/dL (6.4-8.2) D 05/18/18 07:10 Albumin 3.3 g/dL (3.4-5.0) L 05/18/18 07:10 Lipase 111 U/L (73-393) 05/17/18 03:30 Tumor Marker AFP 1.9 ng/mL (0.5-8.0) 05/17/18 10:17 Urine Color Zahra (Yellw/Straw) 05/17/18 03:58 Urine Clarity Hazy (Clear) H 05/17/18 03:58 Urine pH 5.0 (5.0-8.5) 05/17/18 03:58 Ur Specific [place] 1.035 (1.002-1.035) 05/17/18 03:58 Urine Protein 30 mg/dL (Neg-Trace) H 05/17/18 03:58 Urine Glucose (UA) 500 or greater mg/dL (Negative) 05/17/18 03:58 Urine Ketones Negative mg/dL (Negative) 05/17/18 03:58 Urine Occult Blood Negative (Negative) 05/17/18 03:58 Urine Nitrate Negative (Negative) 05/17/18 03:58 Urine Bilirubin Moderate (Negative) H 05/17/18 03:58 Urine Ictotest Positive (Negative) H 05/17/18 03:58 Urine Urobilinogen 4 or greater mg/dL (Less than 2) 05/17/18 03:58 Ur Leukocyte Esterase Negative (Negative) 05/17/18 03:58 Urine RBC 1 /hpf (0-3) 05/17/18 03:58 Urine WBC 2 /hpf (0-5) 05/17/18 03:58 Ur Squamous Epith Cells 3 /hpf (0-5) 05/17/18 03:58 Hyaline Casts 1 /lpf (0-3) 05/17/18 03:58 Urine Mucus Few /lpf (Occasional) H 05/17/18 03:58 Micro UA Comment Culture not ind 05/17/18 03:58 Urine Culture Comments Culture not ind 05/17/18 03:58 Hepatitis A IgM Ab Nonreactive (Nonreactive) 05/17/18 10:17 Hep Bs Antigen Nonreactive (Nonreactive) 05/17/18 10:17 Hep B Core IgM Ab Nonreactive (Nonreactive) 05/17/18 10:17 Hep C IgG Ab Nonreactive (Nonreactive) 05/17/18 10:17 Impressions Chest X-Ray 05/17/18 03:17 CONCLUSION: No acute cardiopulmonary process. Abdomen/Pelvis CT 05/17/18 04:27 CONCLUSION: 1. No acute abnormality is seen. 2. Hepatic steatosis. Gallbladder Ultrasound 05/17/18 05:17 CONCLUSION: 1. Hepatic steatosis. 2. Gallbladder sludge. Bile Acid Absorption NM 05/18/18 00:00 CONCLUSION: 1. Visualization of the gallbladder confirms patency of the cystic duct. This makes diagnosis of acute cholecystitis highly unlikely. 2. Normal biliary bowel transit time confirming patency of the common bile duct. 3. Slow gallbladder filling without significant gallbladder emptying following CCK administration. No significant symptomatic response to CCK. - Imaging CT scan - abdomen: image reviewed Additional studies: Nuclear medicine HIDA scan Assessment and Plan - Assessment (1) Abdominal pain Code(s): R10.9 - Unspecified abdominal pain Status: Acute Qualifiers: Abdominal location: right upper quadrant Qualified Code(s): R10.11 - Right upper quadrant pain Plan: 37 year old male with abdominal pain -Will plan for laparoscopic cholecystectomy tomorrow -Obtain consents -Procedure explained in detail and all questions asked -Diet today; NPO after MN -Hold anticoagulation -Thank you for this consult; We will continue to follow - Plan Discussed Condition With: Dr. Lamin Dolan - Attending Attestation The exam, history, and the medical decision-making described in the above note were completed with the assistance of the mid-level provider. I reviewed and agree with the findings presented. I attest that I had a [id number] encounter with the patient on the same day, and personally performed and documented my assessment and findings in the medical record. 37yo male with obesity and acute cholecystitis abdomen stable, +Aguilar Sign LFT decreasing, likely passed CBD stone will need lap alivia with IOC long D/W patient, R/B/A to surgery, will plan for surgery next 24h
[2018-05-19 12:45] LABS: Smooth Muscle Total Auto Abs Negative (Negative)
--- NOTE | 2018-05-19 13:51 | P.PNIM ---
Subjective Interval history: Symptoms occurred again overnight. Patient is evaluated by surgery this morning. Plan for cholecystectomy tomorrow. Physical Exam Vital signs: Vital Signs 05/18/18 16:00 05/18/18 20:00 05/19/18 00:00 Temperature 97.8 F 98.2 F 97.7 F Pulse Rate 69 55 L 53 L Respiratory Rate 16 18 16 Blood Pressure 166/91 H 135/84 139/87 Pulse Oximetry 100 98 94 L 05/19/18 04:00 05/19/18 07:55 05/19/18 12:00 Temperature 97.5 F L 97.5 F L 98.1 F Pulse Rate 63 58 L 58 L Respiratory Rate 18 18 Blood Pressure 145/83 H 137/85 140/96 H Pulse Oximetry 97 97 98 Intake & Output 05/18/18 05/19/18 05/19/18 18:59 06:59 18:59 Intake Total 300 / 300 1060 / 1060 Balance 300 / 300 1060 / 1060 Intake: IV 1000 / 1000 NS Inj 1,000 ML @ 100 mls/hr IV 1000 / 1000 .CONT .Q10H [facility] Rx#:[id number] Oral 60 / 60 Anesthesia Amount 300 / 300 Other: # Voids 3 1 Date of Last Bowel Movement 05/18/18 05/19/18 # Bowel Movements 1 Narrative: GENERAL: NAD, A&Ox3 HEAD: Normocephalic. NECK: Supple, trachea midline. No lymphadenopathy. EYES: No scleral icterus. No injection or drainage. CARDIOVASCULAR: Regular rate and rhythm without murmurs, gallops, or rubs. RESPIRATORY: Breath sounds equal bilaterally. No accessory muscle use. GASTROINTESTINAL: Abdomen soft, non-tender, nondistended. MUSCULOSKELETAL: No cyanosis, or edema. SKIN: Warm and dry. NEURO: No focal neurological deficits. Results - Labs CBC & Chem 7: 05/18/18 07:10 05/18/18 07:10 Laboratory Results - last 24 hr 05/17/18 10:17 Anti-Smooth Muscle Ab Negative Assessment and Plan - Assessment (1) Abdominal pain Code(s): R10.9 - Unspecified abdominal pain Status: Acute (2) Transaminitis Code(s): R74.0 - Nonspecific elevation of levels of transaminase and lactic acid dehydrogenase [LDH] Status: Acute (3) Dyspepsia Code(s): R10.13 - Epigastric pain Status: Acute (4) Epigastric pain Code(s): R10.13 - Epigastric pain Status: Acute - Plan 37-year-old male admitted secondary to abdominal pain with transaminitis Plan for cholecystectomy tomorrow. Continue as needed pain treatments. Continue monitoring CBC and CMP. Abdominal pain Transaminitis Hyperbilirubinemia Biliary colic Follow LFTs Follow bilirubin level Concern remains for biliary obstruction HIDA scan shows no evidence of acute cholecystitis. Continue to monitor for pain Pain treatments as needed Ultrasound and CT showed no acute pathology NPO at midnight Cholecystectomy planned for tomorrow Diabetes mellitus type 2 Follow blood sugars Insulin sliding scale Diabetic diet Hypertension Continue baseline treatment Follow blood pressures Adjust treatments as needed Chronic colitis Continue baseline treatments Primary symptom from this condition is not abdominal pain, but diarrhea No active diarrhea Sleep apnea CPAP DVT prophylaxis SCDs Discharge Planning Possible discharge tomorrow, if surgery goes well and if cleared by surgery in PM. (1) Abdominal pain Qualifiers: Abdominal location: right upper quadrant Qualified Code(s): R10.11 - Right upper quadrant pain
[2018-05-20] MEDS: Sod Chloride 0.9% Inj 1,000 ML IV.CONT SCH ×2 (05:51→15:45)
[2018-05-20 07:52] LABS: DS DNA Ab (Crithidia) NEGATIVE (NEGATIVE)
--- NOTE | 2018-05-20 08:45 | P.PN ---
Subjective Interval history: Follow up for transaminitis, RUQ abdominal pain. The patient reports continued moderate RUQ abdominal pain, worse after meals. He reports waves of nausea overnight but no vomiting. Denies any diarrhea. Denies fevers/chills. Denies any other medical complaints at this time including no chest pain, shortness of breath, or urinary complaints. He reports a history of possible arrhythmia many years ago, will recheck EKG. Otherwise, the patient denies any heart disease. Physical Exam Vital signs: Vital Signs 05/19/18 12:00 05/19/18 16:00 05/19/18 20:00 Temperature 98.1 F 98.3 F 97.8 F Pulse Rate 58 L 58 L 58 L Respiratory Rate 18 16 16 Blood Pressure 140/96 H 147/74 H 147/82 H Pulse Oximetry 98 96 96 05/19/18 23:38 05/20/18 04:00 Temperature 97.8 F 98.5 F Pulse Rate 54 L 75 Respiratory Rate 16 18 Blood Pressure 142/72 H 129/71 Pulse Oximetry 97 95 Intake & Output 05/19/18 05/20/18 05/20/18 18:59 06:59 18:59 Intake Total 300 / 300 1000 / 1000 Balance 300 / 300 1000 / 1000 Intake: IV 300 / 300 1000 / 1000 NS Inj 1,000 ML @ 100 mls/hr IV 1000 / 1000 .CONT .Q10H [facility] Rx#:[id number] LR 1000 mL Inj 1,000 ML @ 30 300 / 300 mls/hr IV.SIG .Q24H [facility] Rx#: [id number] Other: # Voids 10 Date of Last Bowel Movement 05/19/18 # Bowel Movements 1 Narrative: GENERAL: Well-nourished, well-developed pleasant middle aged obese male patient in [facility]. SKIN: Warm and dry. No rash. HEENT: Normocephalic. Atraumatic. Pupils equal and round. Mucous membranes pink and moist. CARDIOVASCULAR: Regular rate and rhythm. No murmur appreciated. RESPIRATORY: No accessory muscle use. Clear to auscultation. Breath sounds equal bilaterally. GASTROINTESTINAL: Abdomen soft, nondistended, TTP at RUQ and epigastric area. Normoactive bowel sounds x4. MUSCULOSKELETAL: No obvious deformities. Extremities without clubbing, cyanosis , or edema. NEUROLOGICAL: Awake and alert. No obvious cranial nerve deficits. Motor grossly within normal limits. Moving all extremities spontaneously. Normal speech. PSYCHIATRIC: Appropriate mood and affect; insight and judgment normal. Results - Labs CBC & Chem 7: 05/18/18 07:10 05/18/18 07:10 Laboratory Results - last 24 hr 05/17/18 10:17 FRANCISCA Screen Negative FRANCISCA Titer ND FRANCISCA Pattern ND SS-A Antibody <1.0 neg SS-B Antibody <1.0 neg Sm ([place]ado) Antibody <1.0 neg SM/[employer] Antibody <1.0 neg Scl-70 Antibody <1.0 neg Anti-ds DNA Titer (Crith) ND Anti-ds DNA (Crithidia) Negative Anti-Smooth Muscle Ab Negative Assessment and Plan - Assessment (1) Abdominal pain Code(s): R10.9 - Unspecified abdominal pain Status: Acute (2) Transaminitis Code(s): R74.0 - Nonspecific elevation of levels of transaminase and lactic acid dehydrogenase [LDH] Status: Acute (3) Dyspepsia Code(s): R10.13 - Epigastric pain Status: Acute (4) Epigastric pain Code(s): R10.13 - Epigastric pain Status: Acute - Plan 37-year-old male admitted secondary to abdominal pain with transaminitis RUQ Abdominal pain Transaminitis Hyperbilirubinemia Acute Biliary colic Follow LFTs and bilirubin level Ultrasound and CT showed no acute pathology HIDA scan shows no evidence of acute cholecystitis. LFTs remain elevated and patient symptomatic Continue pain control as needed Consult general surgery, planning for lap alivia today 05/20 NPO for now Diabetes mellitus type 2 Follow blood sugars Insulin sliding scale Diabetic diet Hypertension Continue baseline treatment Follow blood pressures Adjust treatments as needed Chronic colitis Continue baseline treatments Primary symptom from this condition is not abdominal pain, but diarrhea No active diarrhea Sleep apnea CPAP DVT prophylaxis: SCDs; avoid chemical prophylaxis with upcoming procedure Discharge Planning: Going for laparoscopic cholecystectomy late this afternoon around 5pm. Likely plan for discharge tomorrow if LFTs continue to improve and tolerating oral intake. (1) Abdominal pain Qualifiers: Abdominal location: right upper quadrant Qualified Code(s): R10.11 - Right upper quadrant pain
[2018-05-20] MEDS: Pantoprazole Inj 40 MG Vial IV.PUSH SCH (11:58)
[2018-05-21] MEDS: Pantoprazole Inj 40 MG Vial IV.PUSH SCH ×3 (00:13→22:33)
[2018-05-21] MEDS: Sod Chloride 0.9% Inj 1,000 ML IV.CONT SCH ×4 (00:14→22:24)
--- NOTE | 2018-05-21 09:46 | P.PN ---
Subjective Interval history: Follow-up for transaminitis, right upper quadrant abdominal pain. The patient reports continued abdominal pain, worse at the right upper quadrant, and worse after eating. He reports some occasional nausea, but no vomiting. Denies fevers or chills. He is looking forward to cholecystectomy today. He has no other medical complaints at this time. Physical Exam Vital signs: Vital Signs 05/20/18 11:57 05/20/18 16:00 05/20/18 20:00 Temperature 98.2 F 98.5 F 98.1 F Pulse Rate 49 L 61 63 Respiratory Rate 18 22 Blood Pressure 141/82 H 138/82 160/93 H Pulse Oximetry 98 98 94 L 05/21/18 00:00 05/21/18 04:00 05/21/18 08:00 Temperature 97.9 F 97.6 F 97.6 F Pulse Rate 75 64 63 Respiratory Rate 18 Blood Pressure 136/86 132/68 137/77 Pulse Oximetry 97 97 Intake & Output 05/20/18 05/21/18 05/21/18 18:59 06:59 18:59 Intake Total 1000 / 1000 1000 / 1000 1000 / 1000 Balance 1000 / 1000 1000 / 1000 1000 / 1000 Intake: IV 1000 / 1000 1000 / 1000 1000 / 1000 NS Inj 1,000 ML @ 100 mls/hr IV 1000 / 1000 1000 / 1000 1000 / 1000 .CONT .Q10H [facility] Rx#:[id number] Other: # Voids 9 Date of Last Bowel Movement 05/20/18 05/20/18 # Bowel Movements 1 1 Narrative: GENERAL: Well-nourished, well-developed pleasant middle aged obese male patient in [facility]. SKIN: Warm and dry. No rash. HEENT: Normocephalic. Atraumatic. Pupils equal and round. Mucous membranes pink and moist. CARDIOVASCULAR: Regular rate and rhythm. No murmur appreciated. RESPIRATORY: No accessory muscle use. Clear to auscultation. Breath sounds equal bilaterally. GASTROINTESTINAL: Abdomen soft, nondistended, mildly TTP at RUQ and epigastric area. Normoactive bowel sounds x4. MUSCULOSKELETAL: No obvious deformities. Extremities without clubbing, cyanosis , or edema. NEUROLOGICAL: Awake and alert. No obvious cranial nerve deficits. Motor grossly within normal limits. Moving all extremities spontaneously. Normal speech. PSYCHIATRIC: Appropriate mood and affect; insight and judgment normal. Results - Labs CBC & Chem 7: 05/18/18 07:10 05/18/18 07:10 Laboratory Results - last 24 hr 05/17/18 10:17 Rheumatoid Factor Less than 14 - Imaging Chest X-Ray 05/17/18 03:17 CONCLUSION: No acute cardiopulmonary process. Abdomen/Pelvis CT 05/17/18 04:27 CONCLUSION: 1. No acute abnormality is seen. 2. Hepatic steatosis. Gallbladder Ultrasound 05/17/18 05:17 CONCLUSION: 1. Hepatic steatosis. 2. Gallbladder sludge. Bile Acid Absorption NM 05/18/18 00:00 CONCLUSION: 1. Visualization of the gallbladder confirms patency of the cystic duct. This makes diagnosis of acute cholecystitis highly unlikely. 2. Normal biliary bowel transit time confirming patency of the common bile duct. 3. Slow gallbladder filling without significant gallbladder emptying following CCK administration. No significant symptomatic response to CCK. Assessment and Plan - Assessment (1) Abdominal pain Code(s): R10.9 - Unspecified abdominal pain Status: Acute (2) Transaminitis Code(s): R74.0 - Nonspecific elevation of levels of transaminase and lactic acid dehydrogenase [LDH] Status: Acute (3) Dyspepsia Code(s): R10.13 - Epigastric pain Status: Acute (4) Epigastric pain Code(s): R10.13 - Epigastric pain Status: Acute - Plan 37-year-old male admitted secondary to abdominal pain with transaminitis RUQ Abdominal pain Transaminitis Hyperbilirubinemia Acute Biliary colic Follow LFTs and bilirubin level Ultrasound and CT showed no acute pathology HIDA scan shows no evidence of acute cholecystitis. LFTs remain elevated and patient symptomatic Continue pain control with Percocet as needed Consult general surgery, planning for lap alivia today 05/21 NPO for now Diabetes mellitus type 2 Follow blood sugars Insulin sliding scale Diabetic diet Hypertension Continue baseline treatment Follow blood pressures Adjust treatments as needed Chronic colitis Continue baseline treatments Primary symptom from this condition is not abdominal pain, but diarrhea No active diarrhea Sleep apnea CPAP DVT prophylaxis: SCDs; avoid chemical prophylaxis with upcoming procedure Discharge Planning: Going for laparoscopic cholecystectomy late this afternoon around 6:30pm. Likely plan for discharge tomorrow if tolerating oral intake and cleared by surgical team. (1) Abdominal pain Qualifiers: Abdominal location: right upper quadrant Qualified Code(s): R10.11 - Right upper quadrant pain
[2018-05-21] MEDS ORDERED: Lidocaine PF 1% Inj 5 ML Syringe INFILTRATN ONE (12:00)
[2018-05-21] MEDS ORDERED: Phenylephrine/NS 1000 MCG/10ML Syringe IV.PUSH ONE (12:00)
[2018-05-21] MEDS ORDERED: Succinylcholine Inj 100 MG/5 ML Syringe IV.PUSH ONE (12:00)
--- NOTE | 2018-05-21 13:23 | ECG ---
Date Performed: 05/20/2018 Time Performed: 14:31:29 PTAGE: 37 years EKG: SINUS BRADYCARDIA WITH SINUS ARRHYTHMIA BORDERLINE ECG PREVIOUS TRACING : 05/17/2018 04.09 Since the previous tracing, no significant change noted DOCTOR: Max Lawrence Interpretating Date/Time 05/21/2018 13:21:33
[2018-05-21] MEDS ORDERED: Bupivacaine/Epinephrine Inj 0.25% 50 ML Vial ONE (19:23)
[2018-05-21] MEDS ORDERED: ceFAZolin 2 GM Premix Inj 2 GM/50 ML PIGGYBACK IV.SIG ONE (19:23)
[2018-05-21 19:51] LABS: Ceruloplasmin 28 mg/dL (18-36)
[2018-05-21] MEDS ORDERED: Sodium Chlor 0.9% Inj 250 ML ONE (20:30)
[2018-05-21] MEDS ORDERED: Sugammadex Inj 200 MG/2 ML Vial IV.PUSH ONE (20:37)
--- NOTE | 2018-05-21 21:39 | XR ---
EXAM DATE: 05/21/2018 9:32 PM EDT AGE/SEX: 37 years / Male INDICATIONS: Obstruction CLINICAL DATA: This is the patient's initial encounter. Patient reports that signs and symptoms have been present for 3 days and indicates a pain score of Nonresponsive. MEDICAL/SURGICAL HISTORY: . Diabetes mellitus type II. Hypertension None. COMPARISON: No prior exams available for comparison. FINDINGS: In the operating room, the cystic duct stump was injected and radiographs obtained. There are 3 dynamic acquisitions. On the first acquisition, contrast was injected into the cystic lucy t and fills the intrahepatic ducts and the common bile duct. On the second and third dynamic acquisit ions, there is persistent contrast present within the ducts. CONCLUSION: Intraoperative cholangiogram. Electronically signed by: Sagar Varma MD 05/21/2018 9:38 PM EDT
[2018-05-21] MEDS ORDERED: fentaNYL Citrate Inj 100 MCG/2 ML Ampul ONE ×2 (21:52)
[2018-05-21] MEDS: HYDROmorphone PF Inj 2 MG/ML Vial IV.PUSH PRN (23:41)
--- NOTE | 2018-05-22 00:16 | MP ---
cc: Jacek Kimble MD DATE OF OPERATION: 05/21/2018 PREOPERATIVE DIAGNOSES: 1. Acute cholecystitis. 2. Choledocholithiasis. POSTOPERATIVE DIAGNOSES: 1. Acute cholecystitis. 2. Choledocholithiasis. PROCEDURE PERFORMED: 1. Laparoscopic cholecystectomy. 2. Intraoperative cholangiogram. SURGEON: Jacek Kimble MD DIDACTIC INSTRUCTOR: Staff. ANESTHESIA: General and local anesthetic. ESTIMATED BLOOD LOSS: 25 mL. COMPLICATIONS: None. FINDINGS: 1. Acutely inflamed gallbladder consistent with acute cholecystitis, minimal chronic inflammatory change. 2. Intraoperative cholangiogram showing dilated intrahepatic and extrahepatic ducts with prominent cutoff at the distal common bile duct without duodenal feeling consistent with an acute or subacute distal common duct obstruction, likely stone. INDICATIONS FOR PROCEDURE: The patient is a 37-year-old male who was admitted for jaundice and right upper quadrant pain. The patient had a workup and was found to likely have a choledocholithiasis that passed. He had a HIDA scan, which showed good flow of radiotracer. The patient had gallbladder sludge and severe right upper quadrant pain as well as symptoms to fatty food intake. After discussion with the patient about further management, I have recommended laparoscopic cholecystectomy for treatment of his gallbladder disease as well as intraoperative cholangiogram to rule out any retained bile duct stone. Risks, benefits, and alternatives were discussed for the surgery and the patient agreed to undergo the procedure. PROCEDURE: The patient was taken to the operating room and placed in the supine position and placed under general endotracheal anesthesia. The patient's abdomen was shaved, prepped and draped in a sterile fashion. Timeout was performed. The abdomen was entered with an Optiview technique with a 5 mm port to the left of the umbilicus. Local anesthetic was used at this site as well as all sites. We insufflated the abdomen, surveyed the abdomen with a 5 mm 30-degree camera and there was no evidence of any complications from our entry. There was definitely an inflamed, distended gallbladder in the right upper quadrant, but no other intra-abdominal pathology. We placed a 10 mm trocar and subxiphoid port as well as two 5 mm trocars in the right upper quadrant under direct visualization of the laparoscope. We did decompress the gallbladder. It was very tense and distended and consistent with acute cholecystitis. We made a small cholecystotomy at the dome of the gallbladder and suctioned contents from the gallbladder. We closed the cholecystotomy with multiple clips. We were then able to grasp at the dome of the gallbladder, retracted the gallbladder upward. There was some fatty tissue around the gallbladder and some few chronic adhesions that were taken down with hook electrocautery. We were able to dissect out the triangle of Calot without difficulty using mainly hook cautery. [place] dissector was used to further define the cystic duct and the infundibular junction. A critical view of safety was obtained. We then placed a clip at the infundibulum of the gallbladder and made a small ductotomy at the cystic duct on the duct side of this clip. Bile was expressed from this ductotomy. We placed a Cook cholangiocatheter through a separate stab incision into the ductotomy at the cystic duct without difficulty. Clips were placed to hold this in position. We flushed with saline. There was no leak. We performed a cholangiogram with approximately 40 mL of contrast dye. There was good filling of the cystic duct, common hepatic duct, common bile duct, and the right and left intrahepatic ducts. These seemed to be dilated mildly. There was an abrupt cutoff at the distal common bile duct at the area of the ampulla with no filling of the duodenum. This was concerning for likely distal bile duct obstruction, likely from the stone. At this point in time, the patient had no reason to not likely be managed with an ERCP or endoscopically, therefore felt that there was not any indication to do common bile duct exploration on this patient at this time. Instead, we completed our ductotomy and divided the cystic duct. We placed 2 clips on the cystic duct stump as well as a Vicryl Endoloop. We removed the gallbladder from the gallbladder fossa with hook electrocautery. There were a few small arterioles associated with the cystic duct, but there is no major cystic artery identified. The gallbladder was removed from the abdomen with the EndoCatch bag through the subxiphoid port. We used suction application assistant and suctioned out the right upper quadrant. All suction was clear. There was no evidence of bile leak or any bleeding. We placed a 10-Nepalese round drain in the right upper quadrant through the most lateral port. The sutures were then placed with a nylon suture. At this point in time, we turned our attention towards completion and removed all the ports under vision of the laparoscope and expressed pneumoperitoneum. We closed the skin with 4-0 Vicryl and the Dermabond on the skin incision. The patient was discontinued from anesthesia and taken to the PACU in stable condition. The patient tolerated the procedure well. No apparent complications. All counts were correct. I was present and scrubbed for the entire procedure. Jacek Kimble MD AWG/sv , 09:48 PM , 09:58 PM
[2018-05-22] MEDS: HYDROmorphone PF Inj 2 MG/ML Vial IV.PUSH PRN ×2 (04:02→13:27)
[2018-05-22] MEDS: Sod Chloride 0.9% Inj 1,000 ML IV.CONT SCH ×2 (06:11→16:57)
[2018-05-22] MEDS ORDERED: Metoprolol Tartrate 25 MG Tablet PO SCH (09:30)
[2018-05-22] MEDS ORDERED: Chlorhexidine Gluconate 2% 1 Pack (2 Cloths) TOPICAL SCH (09:30)
[2018-05-22] MEDS ORDERED: Sodium Chlor 0.9% Inj 500 ML IV.SIG SCH (10:00)
[2018-05-22] MEDS ORDERED: fentaNYL Citrate Inj 100 MCG/2 ML Ampul ONE ×2 (10:03→12:29)
[2018-05-22] MEDS ORDERED: Lidocaine PF 1% Inj 5 ML Syringe INFILTRATN ONE (12:00)
[2018-05-22] MEDS ORDERED: Succinylcholine Inj 100 MG/5 ML Syringe IV.PUSH ONE (12:00)
--- NOTE | 2018-05-22 12:06 | P.PCN ---
Date of procedure: 05/22/18 Pre-op diagnosis: Choledocholithiasis Procedure: PROCEDURE PERFORMED ERCP with sphincterotomy and balloon extraction and biopsy INDICATION FOR PROCEDURE Choledocholithiasis as seen on IOC PROCEDURE: The procedure, risks and benefits were discussed with Patient/POA and informed consent was obtained. Anesthesia sedated Patient with Diprivan. Patient was placed in the left lateral decubitus position. ERCP: Patient was placed in a prone position. The Pentax videoscope was introduced through the oropharynx and advanced to the second portion of the duodenum where the ampula was identified. FINDINGS: The ampulla appeared to be unremarkable with normal limits initial cannulation with a wire was that of the pancreatic duct no contrast was injected with a little bit of maneuvering I was able to cannulate the common bile duct there was filling defect at the distal and a generous sphincterotomy was performed then using an 8 mm balloon I was able to extract sludge and small particles of stone several sweeps were made and no further filling defects were noted the common bile duct appeared to be slightly prominent but otherwise unremarkable no gallbladder was seen no leakage was seen in the intrahepatics were normal As the scope was withdrawn a small nodule was noted in the duodenum this was biopsied ESTIMATED BLOOD LOSS: None SPECIMENS REMOVED: Duodenal biopsy COMPLICATIONS: None IMPRESSION: Choledocholithiasis Duodenal nodule PLAN: Supportive care Await biopsy Start clear liquid diet Monitor labs Anesthesia: GETA Surgeon: Bj Montenegro Condition: stable Disposition: floor
[2018-05-22] MEDS: Pantoprazole Inj 40 MG Vial IV.PUSH SCH ×2 (12:08→21:59)
--- NOTE | 2018-05-22 13:36 | FL ---
EXAM DATE: 05/22/2018 12:25 PM EDT AGE/SEX: 37 years / Male INDICATIONS: Gallstones. CLINICAL DATA: This is the patient's initial encounter. Patient reports that signs and symptoms have been present for 1 day and indicates a pain score of Nonresponsive. MEDICAL/SURGICAL HISTORY: Hypertension. Diabetes mellitus type II. Colitis. Tonsillectomy. COMPARISON: [facility], CHOLANGIOGRAM OPERATIVE, 05/21/2018. . FINDINGS: An ERCP was performed by the ordering physician. The images demonstrate no retained common duct st one. CONCLUSION: No retained common duct stone. Electronically signed by: Conrad Ordonez MD 05/22/2018 1:35 PM EDT
--- NOTE | 2018-05-22 14:33 | P.PNGS ---
Subjective Interval history: Awaiting ERCP this morning otherwise no issues Physical Exam Vital signs: Vital Signs 05/21/18 15:50 05/21/18 19:00 05/21/18 21:43 Temperature 97.9 F 97.8 F 96.7 F L Pulse Rate 67 63 79 Respiratory Rate 18 14 12 Blood Pressure 136/78 142/81 H 150/68 H Pulse Oximetry 95 97 100 05/21/18 21:45 05/21/18 22:00 05/21/18 22:15 Temperature Pulse Rate 81 79 61 Respiratory Rate 20 18 18 Blood Pressure 137/59 L 150/71 H 147/60 H Pulse Oximetry 100 98 100 05/21/18 22:23 05/21/18 23:35 05/22/18 03:40 Temperature 98.5 F 98.4 F 98.7 F Pulse Rate 65 70 69 Respiratory Rate 16 20 20 Blood Pressure 144/80 H 142/82 H 132/79 Pulse Oximetry 98 95 95 05/22/18 08:00 05/22/18 12:14 05/22/18 12:15 Temperature 97.9 F 98 F Pulse Rate 63 69 66 Respiratory Rate 16 18 19 Blood Pressure 136/77 159/85 H 143/85 H Pulse Oximetry 98 100 100 05/22/18 12:30 05/22/18 12:45 05/22/18 13:23 Temperature 98 F 98.3 F Pulse Rate 58 L 61 57 L Respiratory Rate 16 16 16 Blood Pressure 146/85 H 149/84 H 173/83 H Pulse Oximetry 100 96 93 L Intake & Output 05/21/18 05/22/18 05/22/18 18:59 06:59 18:59 Intake Total 1999 2420 / 2420 1000 / 1000 Output Total 905 / 905 55 / 55 Balance 1999 1515 / 1515 945 / 945 Weight 143.78 kg Intake: IV 1999 1300 / 1300 NS Inj 250 ML @ 0 mls/hr .ROUTE 250 / 250 .STK-MED ONE Rx#:[id number] NS Inj 1,000 ML @ 100 mls/hr IV 1999 1000 / 1000 .CONT .Q10H SERGE Rx#:[id number] Ancef 2 GM Premix Inj 2 gm In 50 / 50 50 ml @ 0 mls/hr IV.SIG .STK- MED ONE Rx#:[id number] Oral 120 / 120 Anesthesia Amount 1000 / 1000 1000 / 1000 Output: Urine 850 / 850 0 / 0 Estimated Blood Loss Wound Drainage # 1 Abdomen Other: # Voids 0 Date of Last Bowel Movement 05/20/18 05/20/18 # Bowel Movements 1 Weight On Admission 143.789 kg Narrative: Alert and awake Abd: incisions c/d/i with skin glue in place; soft; minimal tenderness; CHARLENE with minimal clear serous drainage Assessment and Plan - Assessment (1) Abdominal pain Code(s): R10.9 - Unspecified abdominal pain Status: Acute Plan: 37 year old male with abdominal pain -POD1 lap alivia and IOC -ERCP toady -NPO; okay to resume diet per GI after -Pain control -Continue routine CHARLENE drain care - Attending Attestation The exam, history, and the medical decision-making described in the above note were completed with the assistance of the mid-level provider. I reviewed and agree with the findings presented. I attest that I had a [id number] encounter with the patient on the same day, and personally performed and documented my assessment and findings in the medical record. patient seen examined s/p ERCP, stone, duct clear pain ok, tolerating PO CHARLENE drain removed OK to Dc from a surgery standpoint (1) Abdominal pain Qualifiers: Abdominal location: right upper quadrant Qualified Code(s): R10.11 - Right upper quadrant pain
--- NOTE | 2018-05-22 15:33 | P.PN ---
Subjective Interval history: Follow-up for choledocholithiasis, right upper quadrant abdominal pain, transaminitis. The patient is status post laparoscopic cholecystectomy yesterday. Reportedly intraoperative cholangiogram showed distal CBD stone. He is now status post ERCP with stone extraction. The patient is seen sitting upright in bed. He reports some right-sided abdominal discomfort, no worse than previously. He has a drain at the right abdomen with minimal bloody output. He denies any fevers or chills. He has tolerated liquid diet intake. Denies any nausea or vomiting. He has no other medical complaints at this time. Physical Exam Vital signs: Vital Signs 05/21/18 15:50 05/21/18 19:00 05/21/18 21:43 Temperature 97.9 F 97.8 F 96.7 F L Pulse Rate 67 63 79 Respiratory Rate 18 14 12 Blood Pressure 136/78 142/81 H 150/68 H Pulse Oximetry 95 97 100 05/21/18 21:45 05/21/18 22:00 05/21/18 22:15 Temperature Pulse Rate 81 79 61 Respiratory Rate 20 18 18 Blood Pressure 137/59 L 150/71 H 147/60 H Pulse Oximetry 100 98 100 05/21/18 22:23 05/21/18 23:35 05/22/18 03:40 Temperature 98.5 F 98.4 F 98.7 F Pulse Rate 65 70 69 Respiratory Rate 16 20 20 Blood Pressure 144/80 H 142/82 H 132/79 Pulse Oximetry 98 95 95 05/22/18 08:00 05/22/18 12:14 05/22/18 12:15 Temperature 97.9 F 98 F Pulse Rate 63 69 66 Respiratory Rate 16 18 19 Blood Pressure 136/77 159/85 H 143/85 H Pulse Oximetry 98 100 100 05/22/18 12:30 05/22/18 12:45 05/22/18 13:23 Temperature 98 F 98.3 F Pulse Rate 58 L 61 57 L Respiratory Rate 16 16 16 Blood Pressure 146/85 H 149/84 H 173/83 H Pulse Oximetry 100 96 93 L Intake & Output 05/21/18 05/22/18 05/22/18 18:59 06:59 18:59 Intake Total 1999 2420 / 2420 1000 / 1000 Output Total 905 / 905 55 / 55 Balance 1999 1515 / 1515 945 / 945 Weight 143.78 kg Intake: IV 1999 1300 / 1300 NS Inj 250 ML @ 0 mls/hr .ROUTE 250 / 250 .STK-MED ONE Rx#:[id number] NS Inj 1,000 ML @ 100 mls/hr IV 1999 1000 / 1000 .CONT .Q10H SERGE Rx#:[id number] Ancef 2 GM Premix Inj 2 gm In 50 / 50 50 ml @ 0 mls/hr IV.SIG .STK- MED ONE Rx#:[id number] Oral 120 / 120 Anesthesia Amount 1000 / 1000 1000 / 1000 Output: Urine 850 / 850 0 / 0 Estimated Blood Loss 25 / Wound Drainage # 1 Abdomen Other: # Voids 0 Date of Last Bowel Movement 05/20/18 05/20/18 # Bowel Movements 1 Weight On Admission 143.789 kg Narrative: GENERAL: Well-nourished, well-developed pleasant middle aged obese male patient in [facility]. SKIN: Warm and dry. No rash. HEENT: Normocephalic. Atraumatic. Pupils equal and round. Mucous membranes pink and moist. CARDIOVASCULAR: Regular rate and rhythm. No murmur appreciated. RESPIRATORY: No accessory muscle use. Clear to auscultation. Breath sounds equal bilaterally. GASTROINTESTINAL: Abdomen soft, nondistended, minimal TTP throughout right upper /lower quadrant today. Normoactive bowel sounds x4. Laparoscopic incision sites clean, dry, no drainage. Has CHARLENE drain at right abdomen with minimal serous drainage. MUSCULOSKELETAL: No obvious deformities. Extremities without clubbing, cyanosis , or edema. NEUROLOGICAL: Awake and alert. No obvious cranial nerve deficits. Motor grossly within normal limits. Moving all extremities spontaneously. Normal speech. PSYCHIATRIC: Appropriate mood and affect; insight and judgment normal. Results - Labs CBC & Chem 7: 05/18/18 07:10 05/18/18 07:10 Laboratory Results - last 24 hr 05/17/18 10:17 Ceruloplasmin 28 Mitochondria M2 IgG Ab Less than 20.0 - Imaging Impressions Chest X-Ray 05/17/18 03:17 CONCLUSION: No acute cardiopulmonary process. Abdomen/Pelvis CT 05/17/18 04:27 CONCLUSION: 1. No acute abnormality is seen. 2. Hepatic steatosis. Gallbladder Ultrasound 05/17/18 05:17 CONCLUSION: 1. Hepatic steatosis. 2. Gallbladder sludge. Bile Acid Absorption NM 05/18/18 00:00 CONCLUSION: 1. Visualization of the gallbladder confirms patency of the cystic duct. This makes diagnosis of acute cholecystitis highly unlikely. 2. Normal biliary bowel transit time confirming patency of the common bile duct. 3. Slow gallbladder filling without significant gallbladder emptying following CCK administration. No significant symptomatic response to CCK. Cholangiogram,Operative 05/21/18 00:00 CONCLUSION: Intraoperative cholangiogram. GI Procedure 05/22/18 00:00 CONCLUSION: No retained common duct stone. - Procedures 05/21/18 -laparoscopic cholecystectomy with intraoperative cholangiogram 05/22/18 - ERCP with sphincterotomy and balloon extraction and biopsy Assessment and Plan - Assessment (1) Abdominal pain Code(s): R10.9 - Unspecified abdominal pain Status: Acute (2) Transaminitis Code(s): R74.0 - Nonspecific elevation of levels of transaminase and lactic acid dehydrogenase [LDH] Status: Acute (3) Dyspepsia Code(s): R10.13 - Epigastric pain Status: Acute (4) Epigastric pain Code(s): R10.13 - Epigastric pain Status: Acute - Plan 37-year-old male admitted secondary to abdominal pain with transaminitis Acute Biliary colic, Transaminitis, Hyperbilirubinemia, RUQ Abdominal pain: acute. Follow LFTs and bilirubin level Ultrasound and CT showed no acute pathology HIDA scan shows no evidence of acute cholecystitis. LFTs remain elevated and patient symptomatic Continue pain control with Percocet as needed Consulted general surgery and gastroenterology 05/21/18 -s/p laparoscopic cholecystectomy with intraoperative cholangiogram; CHARLENE drain placed 05/22/18 -s/p ERCP with sphincterotomy and balloon extraction and biopsy Diet advanced to clears, patient tolerating well Diabetes mellitus type 2 Follow blood sugars Insulin sliding scale Diabetic diet Hypertension Continue baseline treatment Follow blood pressures Adjust treatments as needed Chronic colitis Continue baseline treatments Primary symptom from this condition is not abdominal pain, but diarrhea No active diarrhea Sleep apnea CPAP DVT prophylaxis: SCDs; avoid chemical prophylaxis with procedures Discharge Planning: Plan for discharge when tolerating oral intake and cleared by surgical team. (1) Abdominal pain Qualifiers: Abdominal location: right upper quadrant Qualified Code(s): R10.11 - Right upper quadrant pain
[2018-05-23] MEDS: Sod Chloride 0.9% Inj 1,000 ML IV.CONT SCH ×2 (00:14→03:13)
[2018-05-23 09:01] LABS: Hematocrit 42.3 % (39.0-51.0); Hemoglobin 14.8 gm/dL (13.0-17.0); Mean Corpuscular HGB Conc 35.1 % (32.0-36.0); Mean Corpuscular Hemoglobin 30.8 pg (27.0-34.0); Mean Corpuscular Volume 87.9 fL (80.0-100.0); Mean Platelet Volume 8.9 fL (7.0-11.0); Platelet Count 230 th/mm3 (150-450); Red Blood Count 4.82 mil/mm3 (4.50-5.90)
[2018-05-23 09:16] LABS: Albumin 3.6 g/dL (3.4-5.0); Anion Gap 8 meq/L (5-15); Blood Urea Nitrogen 7 mg/dL (7-18); Calcium 8.6 mg/dL (8.5-10.1); Carbon Dioxide 26.8 meq/L (21.0-32.0); Chloride 105 meq/L (98-107); Glomerular Filtration Rate Greater Than 89 mL/min (>89); Glucose,Random 133 mg/dL (74-106); Potassium 3.6 meq/L (3.5-5.1); Sodium 140 meq/L (136-145)
[2018-05-23 09:17] LABS: Aspartate Aminotransferase 225 U/L (15-37)
[2018-05-23 09:21] LABS: Alanine Aminotransferase 648 U/L (12-78); Alkaline Phosphatase 130 U/L (45-117); Total Protein 7.3 g/dL (6.4-8.2)
--- NOTE | 2018-05-23 09:40 | P.DS ---
Date of admission: 05/17/18 06:24 Primary care physician: UNKNOWN Attending physician on discharge: Lindsey Sterling Anticipated date of discharge: 05/23/18 Brief History from admission: Mr. Dolan is a 37-year-old male. He says for several weeks he has been having intermittent right upper quadrant abdominal pain. This tends to occur at night and he is noticed that it may be positional for introducing the pain and alleviating the pain. Yesterday he had an onset of the pain but did not have relief for approximately 24 hours so he came in to the emergency department. No overt evidence is present for cholecystitis though clinically and based on history he would be suspicious for symptomatic cholelithiasis. When I am seeing this patient he has had resolution of his pain. HIDA scan is pending. DS: Diagnosis - Discharge Diagnosis (1) Abdominal pain Status: Acute (2) Transaminitis Status: Acute (3) Dyspepsia Status: Acute (4) Epigastric pain Status: Acute (5) Biliary colic Status: Acute (6) Choledocholithiasis with cholecystitis Status: Acute DS: Medications - Discharge Medications Prescriptions: lisinopril 10 mg PO DAILY #30 tab DS: Summary Hospital Course: Patient Update on Day of Discharge: The patient is tolerating oral intake. Pain well controlled. CHARLENE drain removed yesterday. He is voiding well and had a normal formed nonbloody BM this morning. Denies any nausea/vomiting. Denies any fevers/chills. He feels ready for discharge. Hospital Course: 37-year-old male admitted secondary to abdominal pain with transaminitis Acute Biliary colic, Transaminitis, Hyperbilirubinemia, RUQ Abdominal pain: acute. The patient presented with right upper quadrant pain. He was found to have elevated LFTs. Liver ultrasound and abdominal CT showed no acute pathology. HIDA scan was negative for acute cholecystitis. His LFTs remained elevated and the patient was symptomatic with inability to tolerate oral intake and intractable right upper quadrant pain. General surgery was consulted. -s/p laparoscopic cholecystectomy with intraoperative cholangiogram; CHARLENE drain placed. IOP showed obstruction at the distal common bile duct. Gastroenterology was consulted. 05/22/18 -s/p ERCP with sphincterotomy and balloon extraction and biopsy. Diet advanced to clears then regular diet, patient tolerated well. Cleared for discharge by general surgery. Outpatient f/ up. - Time Spent with Patient Total time spent providing and/or coordinating discharge services: Less than 30 minutes - Quality: VTE Deep Vein Thrombosis/Pulmonary Embolism Present on Admission: No Exam Vital signs: Vital Signs 05/22/18 12:14 05/22/18 12:15 05/22/18 12:30 Temperature 98 F Pulse Rate 69 66 58 L Respiratory Rate 18 19 16 Blood Pressure 159/85 H 143/85 H 146/85 H Pulse Oximetry 100 100 100 05/22/18 12:45 05/22/18 13:23 05/22/18 16:00 Temperature 98 F 98.3 F 98.3 F Pulse Rate 61 57 L 70 Respiratory Rate 16 16 16 Blood Pressure 149/84 H 173/83 H 146/72 H Pulse Oximetry 96 93 L 96 05/22/18 20:00 05/22/18 23:59 05/23/18 03:36 Temperature 97.8 F 97.7 F 97.8 F Pulse Rate 71 61 65 Respiratory Rate 20 18 18 Blood Pressure 151/76 H 125/58 L 130/70 Pulse Oximetry 97 96 96 05/23/18 08:00 Temperature 98.2 F Pulse Rate 64 Respiratory Rate 16 Blood Pressure 149/80 H Pulse Oximetry 96 Intake & Output 05/22/18 05/23/18 05/23/18 18:59 06:59 18:59 Intake Total 1000 / 1000 1000 / 1000 900 / 900 Output Total 75 / 75 Balance 925 / 925 1000 / 1000 900 / 900 Intake: IV 1000 / 1000 900 / 900 NS Inj 1,000 ML @ 100 mls/hr IV 1000 / 1000 900 / 900 .CONT .Q10H [facility] Rx#:[id number] Anesthesia Amount 1000 / 1000 Output: Urine 0 / 0 Estimated Blood Loss 25 / 25 Wound Drainage 50 / 50 # 1 Abdomen 50 / 50 Other: # Voids 4 Date of Last Bowel Movement 05/22/18 Narrative: GENERAL: Well-nourished, well-developed pleasant middle aged obese male patient in [facility]. SKIN: Warm and dry. No rash. HEENT: Normocephalic. Atraumatic. Mucous membranes pink and moist. CARDIOVASCULAR: Regular rate and rhythm. No murmur appreciated. RESPIRATORY: No accessory muscle use. Clear to auscultation. Breath sounds equal bilaterally. GASTROINTESTINAL: Abdomen soft, nondistended, minimal TTP throughout right upper /lower quadrant today. Normoactive bowel sounds x4. Laparoscopic incision sites clean, dry, no drainage. CHARLENE drain removed, surgical dressing at [facility]. MUSCULOSKELETAL: No obvious deformities. Extremities without clubbing, cyanosis , or edema. NEUROLOGICAL: Awake and alert. No obvious cranial nerve deficits. Motor grossly within normal limits. Moving all extremities spontaneously. Normal speech. PSYCHIATRIC: Appropriate mood and affect; insight and judgment normal. Results Procedures completed during hospitalization: 05/21/18 -laparoscopic cholecystectomy with intraoperative cholangiogram 05/22/18 - ERCP with sphincterotomy and balloon extraction and biopsy Completed studies during hospitalization: Pending at discharge 05/18/18 15:09 Surgical [PTH] Routine Pending studies at discharge: Pending at discharge 05/21/18 07:34 Surgical [PTH] Routine Labs on day of discharge: Labs from last 24 hours 05/23/18 05/23/18 08:33 08:33 WBC 10.0 RBC 4.82 Hgb 14.8 Hct 42.3 MCV 87.9 MCH 30.8 MCHC 35.1 RDW 14.0 Plt Count 230 MPV 8.9 Sodium 140 Potassium 3.6 Chloride 105 Carbon Dioxide 26.8 Anion Gap 8 BUN 7 Creatinine 0.88 Estimated GFR Greater than 89 Random Glucose 133 H Calcium 8.6 Total Bilirubin 3.2 H AST 225 H ALT 648 H Alkaline Phosphatase 130 H Total Protein 7.3 D Albumin 3.6 - Impressions ITS Impressions Chest X-Ray 05/17/18 03:17 CONCLUSION: No acute cardiopulmonary process. Abdomen/Pelvis CT 05/17/18 04:27 CONCLUSION: 1. No acute abnormality is seen. 2. Hepatic steatosis. Gallbladder Ultrasound 05/17/18 05:17 CONCLUSION: 1. Hepatic steatosis. 2. Gallbladder sludge. Bile Acid Absorption NM 05/18/18 00:00 CONCLUSION: 1. Visualization of the gallbladder confirms patency of the cystic duct. This makes diagnosis of acute cholecystitis highly unlikely. 2. Normal biliary bowel transit time confirming patency of the common bile duct. 3. Slow gallbladder filling without significant gallbladder emptying following CCK administration. No significant symptomatic response to CCK. Cholangiogram,Operative 05/21/18 00:00 CONCLUSION: Intraoperative cholangiogram. GI Procedure 05/22/18 00:00 CONCLUSION: No retained common duct stone. Discharge Plan - Discharge Disposition Patient Disposition: 01 Discharge Home - Discharge Condition Condition: Stable - Discharge Order Discharge Orders: Discharge Order (Routine); Ordered 05/23/18 Ordered By: Danielle Buchanan [facility] Surgery Clear for Discharge (Routine); Ordered 05/22/18 Ordered By: Jacek Kimble - Discharge Details Anticipated Discharge Date: 05/23/18 Discharge Comment: Ok to discharge after breakfast, if tolerates. - Physicians Team Primary Care Provider: UNKNOWN, Attending Provider: Lindsey Sterling Other Providers: Garret White MD ; Jacek Kimble MD ; Khalif Cuadra
== END 2018-05-23 11:08 | disposition home or self-care (01) ==
LOC: NEPE 22:37 → NEDA 22:37 → NEDH 05-17 10:57 → NEPHCDU 05-17 16:43
PROVIDERS: ADMIT Internal Medicine; ATTEND Internal Medicine
PROC: COLONOS (2018-05-18 11:20)
PROC: PANENDO (2018-05-18 11:20)